=== PATIENT | female | born 1990 | race Caucasian/White ===

== ENCOUNTER 2021-12-04 09:25 | Emergency (ER) | payer MEDICAID, SELFPAY ==
[2021-12-04 09:31] VITALS: BP 142/80; PULSE 77; RESP 16; TEMP 36.8; O2SAT 97; BMI 34.7
[2021-12-04 09:50] LABS: Strep A Nucleic Acid Negative (Negative)
--- NOTE | 2021-12-04 11:21 | ED_ITS ---
HPI - URI/Sore Throat General Chief Complaint: General Medical Stated Complaint: Sore throat/Swollen tonsils Time Seen by Provider: 12/04/21 11:15 Source: patient Mode of arrival: ambulatory Limitations: no limitations History of Present Illness HPI Narrative: 31-year-old female presenting to the ED with complaints of ear pain/sore throat for approximately 1 week worse on the left side reports that she has swelling to the right tonsil although her left tonsil hurts more. She denies any recent dental work although reports that she believes she needs her left wisdom tooth removed due to dental caries. Denies any fevers, chills, dizziness, headaches, neck pain/stiffness, trouble swallowing or breathing, drooling, changes in voice, cough, sputum production, nausea/vomiting/diarrhea constipation, abdominal pain, rashes or recent travel or sick contacts. Reports that she does not want to be tested for COVID with the flu because she does not have any other symptoms she believes it is an infection her throat. MD elicited complaint: sore throat Onset (ago): week(s) (1) Consistency: constant and progressively worsening Severity: mild Description of mucous: clear and watery Able to tolerate fluids by mouth: Yes Exacerbating factors: swallowing Relieving factors: nothing Associated symptoms: ear pain Treatments prior to arrival: none Related Data Previous Rx's Medication Instructions Recorded amoxicillin 875 mg-potassium 1 tab PO BID 10 Days #20 tab 12/04/21 clavulanate 125 mg tablet dexamethasone 6 mg tablet 12 mg PO ONCE 1 Days #2 tab 12/04/21 (Decadron) Allergies Allergy/AdvReac Type Severity Reaction Status Date / Time No Known Allergies Allergy Verified 12/04/21 09:34 Review of Systems Review of Systems: Constitutional : No Weight loss, No Fever, No Chills, No Night Sweats, No Fatigue, No Malaise ENT/Mouth : +sore throat and left sided ear pain, No Hearing loss, No Nasal Congestion, No Sinus Pain, No Hoarseness, No Rhinorrhea, No Swallowing Difficu lty Eyes: No Eye Pain, No Swelling, No Redness, No Foreign Body, No Discharge, No Vision Changes Cardiovascular : No Chest Pain, No SOB, No Dyspnea on Exertion, No Orthopnea, No Edema, No Palpitations Respiratory : No Cough, No Sputum, No Wheezing, No Smoke Exposure, No Dyspnea Gastrointestinal : No Nausea, No Vomiting, No Diarrhea, No Constipation, No abdominal Pain, No Hematochezia, No Melena Genitourinary : no irregular bleeding, No Dysuria, No Urinary Frequency, No Hematuria, No Urinary Incontinence, No Urgency, No Flank Pain, No Urinary Flow Changes, No Hesitancy Musculoskeletal : No joint pain, No Myalgias, No Joint Swelling Skin : No Skin Lesions, No rash Neuro : No Weakness, No Numbness, No Paresthesias, No Loss of Consciousness, No Dizziness, No Headache Psych : No Anxiety/Panic, No Depression, No SI/HI/AH/VH, No Social Issues, Heme/Lymph: No Bruising, No Bleeding,No Lymphadenopathy Endocrine : No Polyuria, No Polydipsia, No Temperature Intolerance Yes all other systems are reviewed and are negative [facility] Past Medical History Attestation statement: The following information was validated with the patient. Physical Exam Vital Signs: Vital Signs: Last Vital Signs Temp 98.3 F 12/04/21 09:31 Pulse 77 12/04/21 09:31 Resp 16 12/04/21 09:31 BP 142/80 H 12/04/21 09:31 Pulse Ox 97 12/04/21 09:31 BMI result Body Mass Index 34.7 vital signs have been reviewed as normal and appeared to be correct. Blood pressure normal. Heart rate normal. Respiration rate normal. Temperature normal. Oxygen saturation normal. Appearance: Alert. Oriented X3. No acute distress. Head: Normal external exam. Normocephalic. Atraumatic. Eyes: PERRLA. EOMI. Conjunctiva and sclera normal. Eyelids normal. ENT: EAC normal. TM's Normal. Soft and hard palate are within normal limits. Bilateral tonsils are erythematous with scattered exudate noted the right tonsil is mildly larger than the left tonsil although uvula is midline not consistent with peritonsillar/laryngeal/dental or gingival abscess at this time. Patient is tolerating secretions well. Moist mucous membranes. No lesions/ulcerations or masses noted on the tongue. Normal voice. No trismus noted. No drooling noted. No muffled voice noted. Neck: Normal inspection. Neck supple. FROM. No adenopathy. Thyroid Normal. No tracheal deviation noted. No crepitus is noted. No meningeal signs. No neck mass noted. No signs of trauma noted. CVS: Normal heart rate and rhythm. Heart sound normal. Pulses normal throughout. No murmurs/rales/gallops. Respiratory: No respiratory distress. Painless inspiration. Breath sounds normal. No wheezes/rales/rhonchi noted. Chest nontender. No crepitus is noted. No signs of trauma noted. No accessory muscle usage noted or decreased air movement noted. No signs of trauma. Back: Full range of motion noted. Skin: Skin warm and dry. Normal skin color. Normal skin turgor. No rashes/lesions/lacerations noted. Extremities: Extremities exhibit normal range of motion and nontender. Neuro: Oriented X 3. No motor deficit. No sensory deficit. Reflexes normal. Normal steady gait. No focal neuro deficits noted. CN's II-XII intact bilaterally? Vascular: + radial pulses/+ 2 distal pedal pulses/+2 dorsalis pedis b/l. Normal cap refill. No cyanosis noted to upper extremity nails and lower extremity toes nails. Course Course Course Narrative: 31-year-old female presenting to the ED with complaints of ear pain/sore throat for approximately 1 week worse on the left side reports that she has swelling to the right tonsil although her left tonsil hurts more. She denies any recent dental work although reports that she believes she needs her left wisdom tooth removed due to dental caries. Denies any fevers, chills, dizziness, headaches, neck pain/stiffness, trouble swallowing or breathing, drooling, changes in voice, cough, sputum production, nausea/vomiting/diarrhea constipation, abdominal pain, rashes or recent travel or sick contacts. Reports that she does not want to be tested for COVID with the flu because she does not have any other symptoms she believes it is an infection her throat. Patient negative for strep. She declined testing for COVID and flu despite me offering. Will treat for strep despite patient being negative on exam it does not appear that she has peritonsillar/pharyngeal/dental or gingival abscess at this time. Uvula is midline. She is tolerating secretions well. Normal voice. No trismus/drooling/stridor. No muffled voice noted. I explained to the patient if her voice changes or for uvula shift and she would need to return immediately but at this time this is not occurring and she understands and agrees with the plan and to follow-up with her primary care provider. Patient understands agrees with this plan MDM - URI/Sore Throat Medical Records Attestation: I reviewed the patient's medical records. Lab Data Attestation: I reviewed the patient's lab results. Labs: Lab Results 12/04/21 Range/Units 09:34 S. pyogenes GrpA MELANY Negative (Negative) Discharge Plan Discharge Clinical Impression: Acute bacterial pharyngitis Patient Disposition: Home, Self-Care Instructions: Pharyngitis (ED) Prescriptions: New amoxicillin-pot clavulanate 875-125 mg tablet 1 tab PO BID 10 Days Qty: 20 0RF dexamethasone [Decadron] 6 mg tablet 12 mg PO ONCE 1 Days Qty: 2 0RF Referrals: Physician,Unknown J [Primary Care Provider] - 2 days (Your PCP) Stand Alone Forms: Work/School Release
== END 2021-12-04 11:45 | disposition home or self-care (01) ==
LOC: HO.ED 11:32
PROVIDERS: Emergency Provider Emergency Medicine Emergency Medical Services
DX: J02.8 Acute pharyngitis due to other specified organisms (principal)
CPT/HCPCS: 36415; 87651; 99282; 99283

== ENCOUNTER 2022-04-19 22:12 | Emergency (ER) | payer MEDICAID, SELFPAY ==
--- NOTE | ~2022-04-19 | CT_ITS ---
EXAMINATION: CT head/brain wo IV con CLINICAL INFORMATION: Reason for Exam headache COMPARISON: None. TECHNIQUE: Contiguous axial imaging was performed from the skull base to vertex without intravenous contrast. Sagittal and coronal reformatted images were obtained. This CT examination was performed using dose optimization techniques as appropriate, variously including the following: * Automated exposure control * Adjustment of mA and/or kV according to patient size (this includes techniques or standardized protocols for targeted exams where dose is matched to indication/reason for exam; i.e. extremities or head) Use of iterative reconstruction technique DLP: 673 mGy-cm FINDINGS: No acute osseous or soft tissue abnormality. The mastoid air cells and visualized portions of the paranasal sinuses are well aerated. There is no evidence of acute intracranial hemorrhage or territorial infarction. No abnormal mass effect or midline shift is seen. Parkinson to white matter differentiation is well preserved. No extra-axial fluid collections are identified. No hydrocephalus. No significant volume loss. There is no abnormal attenuation within the brain parenchyma. CT/CT head/brain wo IV con IMPRESSION: No acute intracranial abnormality including hemorrhage, mass effect, hydrocephalus, or acute territorial edematous infarction.
[2022-04-19 22:41] VITALS: BP 136/86; PULSE 84; RESP 18; TEMP 36.9; O2SAT 98; BMI 33.8
[2022-04-19] MEDS: Acetaminophen 325 MG TABLET 650 MG PO (22:51)
[2022-04-19 23:17] LABS: MANUAL DIFF FLAG NO
[2022-04-19 23:20] LABS: Basophils Absolute Auto 0.1 X10*3/uL (0.0-0.2); Basophils Percent Auto 0.7 % (0-2); Eosinophils Absolute Auto 0.2 X10*3/uL (0.0-0.4); Eosinophils Percent Auto 2.1 % (0-4); Hemoglobin 14.1 g/dl (12.0-16.0); Imm Gran Abs Auto 0.03 X10*3/uL (0.00-0.03); Imm Gran Pct Auto 0.3 % (0.0-0.4); Lymphocytes Percent Auto 31.7 % (20-40); Mean Corpuscular HGB Conc 34.4 g/dl (31.0-35.0); Mean Corpuscular Hemoglobin 29.9 pg (27.0-33.0); Mean Corpuscular Volume 86.9 fL (80.0-98.0); Mean Platelet Volume 10.4 fL (9.4-12.3); Monocytes Percent Auto 10.1 % (2-11); Neutrophils Absolute Auto 5.2 x10*3/uL (2.0-8.3); Neutrophils Percent Auto 55.1 % (45-73); Platelet Count 291 X10*3/uL (160-400); Red Blood Count 4.72 X10*6/uL (4.20-5.50); Red Cell Distribution Width 12.4 % (11.0-16.0); White Blood Count 9.4 X10*3/uL (4.8-10.8)
[2022-04-19 23:38] LABS: Anion Gap 15 (12-20); Blood Urea Nitrogen 11 mg/dL (9-16); Calcium 9.8 mg/dL (8.4-10.2); Carbon Dioxide 25 mmol/L (22-29); Chloride 106 mmol/L (96-108); Creatinine Clr Calc Pharmacy 123.3; Estimated Glomerular Filt Rate > 60; Glucose Random 97 mg/dL (60-115); Potassium 4.3 mmol/L (3.3-5.1); Sodium 142 mmol/L (135-145)
--- OUTSIDE RECORDS SUMMARY | 2022-04-20 01:50 | XMS_ITS | Continuity of Care Document ---
:1990 Author Organization [facility] Address [address] [place] [id number]- Care Team Providers Name Role Phone Not on Staff, PCP Primary Care Physician Unavailable [facility]): 09[facility]20 - 09/25/[address] [address] Attending Physician: Not on Staff, Attending MD Referring Physician: Yvonne Casanova CNM Allergies, Adverse Reactions, Alerts Substance Reaction Severity Status NKA Active Immunizations Given and Recorded Vaccine Date Status Refusal Reason tetanus/diphtheria/pertussis, acel(Tdap)1 09/04/20 Given Measles/Mumps/Rubella Virus Vaccine 12/13/18 Given Measles/Mumps/Rubella Virus Vaccine2 05/14/98 Given Measles/Mumps/Rubella Virus Vaccine3 10/31/93 Given Boostrix (Tdap) (oldterm) 08/17/13 Given Human Papillomavirus Vaccine4 02/22/08 Given Human Papillomavirus Vaccine 02/15/07 Given Meningococcal Conjugate Vaccine 02/15/07 Given Tet/Diphth/Acel, Pertussis (oldterm)5 02/15/07 Given tetanus-diphtheria toxoids (Td)6 05/05/05 Given Hepatitis B Vaccine (old term)7 10/24/02 Given Hepatitis B Vaccine (old term)8 04/30/02 Given Hepatitis B Vaccine (old term)9 03/26/02 Given Poliovirus Vaccine, Inactivated 03/18/98 Given Poliovirus Vaccine, Inactivated 09/24/94 Given Poliovirus Vaccine, Inactivated 08/21/93 Given Poliovirus Vaccine, Inactivated 92 Given Diphth/Pertussis, Whl Cell/Tet(oldterm)10 03/18/98 Given Diphth/Pertussis, Whl Cell/Tet(oldterm)11 09/24/94 Given Diphth/Pertussis, Whl Cell/Tet(oldterm)12 08/21/93 Given Diphth/Pertussis, Whl Cell/Tet(oldterm)13 92 Given Diphth/Pertussis, Whl Cell/Tet(oldterm)14 92 Given Haemophilus B Conj Vaccine (oldterm)15 92 Given 1Result Comment: [facility] [phone] Note: OVZ0Fzhhp Note: YEX9Pnkef Note: vis Admin Note: TDAP WEDPR2Qnycr Note: TD. hx varicella age 19Admin Note: HEP W8Vtcoz Note: HEP S5Ayivp Note: HEP P39Tfkvn Note: MPV19Wwnmb Note: DTP12 Admin Note: QRQ65Paref Note: COU39Rpsvs Note: QZC29Jptcm Note: HIB Medications Multivitamins By Mouth, Daily, 0 Refills, Maintenance, 11/22/18 14:54:56 EDT Start Date: 11/22/18 Status: Orderedpyridoxine 25 mg oral tablet 1 tablet = 25 mg, By Mouth, Daily, one by mouth three times a day, # 100 tablet, 1 Refills, Maintenance, 05/08/20 12:18:00 EDT, [id number], 155, cm, 05/08/20 11:38:00 EDT, Height, 101, kg, 12/11/18 12:30:00 EDT, Dry Weight Start Date: 05/08/20 Status: OrderedUnisom 25 mg oral tablet 1 tablet = 25 mg, By Mouth, Daily at bedtime, # 30 tablet, 1 Refills, Maintenance, 05/08/20 12:18:00EDT, [id number], 155, cm, 05/08/20 11:38:00 EDT, Height, 101, kg, 12/11/18 12:30:00 EDT, DryWeight Start Date: 05/08/20 Status: Ordered Problem List Condition Effective Dates Status Health Status Informant ADHD - Attention deficit disorder with Active hyperactivity(Confirmed) Anemia(Confirmed) Active Anxiety(Confirmed) Active Dermoid cyst of ovary(Confirmed) Active History of blood Transfusion r/t Active severe anemia PP(Confirmed) Obesity(Confirmed) Active Need for MMR vaccine(Confirmed) Active Vital Signs Most recent to oldest [Reference Range]: 1 Height 155 cm (09/18/20 9:53 AM) Weight 90.6 kg (09/18/20 9:53 AM) Body Mass Index [18.5-24.99] 37.71 *>HHI* (09/18/20 9:53 AM) Blood Pressure [90-138/55-84 mm Hg] 104/65 mm Hg (09/18/20 9:53 AM) Temperature [96.8-100.4 DegF] 96.5 DegF *L* (09/18/20 9:53 AM) Blood pressure sites Arm, right (09/18/20 9:53 AM) Dry Weight 90.6 kg (09/18/20 9:53 AM) Weight Obtained Via Standing scale (09/18/20 9:53 AM) Dry Weight Obtained Via Standing scale (09/18/20 9:53 AM) Social History Social History Type Response Smoking Status Former smoker, quit more yaya n 30 days ago; Type: Cigarettes; Other: Smoked on/off for about five years. About 1-2 cigarettes. Quit around 2016; entered on: 11/22/18 Sex
--- OUTSIDE RECORDS SUMMARY | 2022-04-20 01:50 | XMS_ITS | Continuity of Care Document ---
:1990 Author Organization [facility] Address [address] [place] [id number]- Care Team Providers Name Role Phone Not on Staff, PCP Primary Care Physician Unavailable [facility]): 10/16/20 - 11/15/[address] [address] Allergies, Adverse Reactions, Alerts Substance Reaction Severity [...] Conj Vaccine (oldterm)15 92 Given 1Result Comment: [facility] [phone] Note: MMS5Zkwdd Note: JHZ8Nbezs Note: vis Admin Note: TDAP BTGBS2Csfde Note: TD. hx varicella age 19Admin Note: HEP B5Gvecy Note: HEP U2Szuuo Note: HEP F54Qcczx Note: FOD51Dbwyx Note: DTP12 Admin Note: TWS12Ylplp Note: SGX10Ftlnd Note: DET15Ztowg Note: HIB Medications ferrous sulfate 325 mg oral tablet 1 tablet = 325 mg, By Mouth, Daily, # 30 tablet, 4 Refills, Maintenance, 10/02/20 10:34:00 EDT, [facility]/pharmacy #[id number], Partial fill upon patient request if the prescription is for a schedule II opioid drug., 155, cm, 09/18/20 9:53:00 EST, Height, 90.6, k... Start Date: 10/02/20 Stop Date: 03/01/21 Status: OrderedPrenatal Multivitamins By Mouth, Daily, 0 Refills, Maintenance, [...] Obesity(Confirmed) Active Need for MMR vaccine(Confirmed) Active Social History Social History Type Response Smoking Status Former smoker, quit more yaya n 30 days ago; Type: Cigarettes; Other: Smoked on/off for about five years. About 1-2 cigarettes. Quit around 2016; entered on: 11/22/18 Sex
--- OUTSIDE RECORDS SUMMARY | 2022-04-20 01:50 | XMS_ITS | Continuity of Care Document ---
:1990 Author Organization [facility] Address Unavailable , Care Team Providers Name Role Phone Not on Staff, PCP Primary Care Physician Unavailable [facility] Attending Physician: Not on Staff, Attending MD Referring Physician: Not on Staff, Referring MD Allergies, Adverse Reactions, Alerts Substance Reaction Severity [...] Conj Vaccine (oldterm)15 92 Given 1Result Comment: [facility] [phone] Note: SFC2Fouos Note: EPR0Tixtu Note: vis Admin Note: TDAP LRMXD6Lvlcb Note: TD. hx varicella age 19Admin Note: HEP N4Kfqsq Note: HEP O0Tuwdl Note: HEP S33Xkzlv Note: FIK60Nztmw Note: DTP12 Admin Note: COP40Dgkpt Note: XHX54Dwule Note: ZIC67Paoyu Note: HIB Medications acetaminophen 325 mg oral tablet 650 mg, By Mouth, Every 4 hours, PRN, (1-3), may give 325mg per patient preference and re-dose with 325mg within 4 hours, if needed. Patient should only receive a total of 650mg of Acetaminophen every 4 hours., Refills 0, Maintenance, Pain , Mild, 0... Start Date: 11/24/20 Status: Orderedacetaminophen 325 mg oral tablet 325 mg, 1, tablet, By Mouth, Every 4 hours, PRN, # 60 tablet, Refills 0, Tot. Refills 0, Maintenance, for pain, 11/24/20 9:42:00 EDT, Route to Pharmacy Electronically, [facility]/pharmacy #[id number], Partial fill upon patient request if the prescription is for a... Start Date: 11/24/20 Status: Orderedferrous sulfate 325 mg oral tablet 1 tablet = 325 mg, By Mouth, Daily, # 30 tablet, 4 Refills, Maintenance, 10/02/20 10:34:00 EDT, [facility]/pharmacy #[id number], Partial fill upon patient request if the prescription is for a schedule II opioid drug., 155, cm, 09/18/20 9:53:00 EST, Height, 90.6, k... Start Date: 10/02/20 Stop Date: 03/01/21 Status: Orderedibuprofen 600 mg oral tablet 600 mg, 1, tablet, By Mouth, 4 times a day, PRN, # 30 tablet, Refills 0, Tot. Refills 0, Maintenance, as needed for pain, 11/24/20 9:44:00 EDT, Route to Pharmacy Electronically, [facility]/pharmacy #[id number], Partial fill upon patient request if the prescription... Start Date: 11/24/20 Status: Orderedibuprofen 800 mg oral tablet 800 mg, 1, tablet, By Mouth, Every 8 hours, PRN, (4-6), may give 400mg per patient preference and re-dose with 400mg within 8 hours if needed. Patient should only receive a total of 800mg of Ibuprofen every 8 hours., Refills 0, Maintenance, Pain , M... Start Date: 11/24/20 Status: OrderedMirena 52 mg intrauterine device See Instructions, Insert as directed DOI 03-05-21 Please Mail to [facility] Dinorah Ballard [employer] ATTN [address] [address], # 1 each, 0 Refills, Soft Stop, 01/08/21 10:13:00 EDT, [facility], Partial fill upon... Start Date: 01/08/21 Status: OrderedPrenatal Multivitamins By Mouth, Daily, 0 Refills, Maintenance, 11/22/18 14:54:56 EDT Start Date: 11/22/18 Status: Ordered Problem List Condition Effective Dates [...]
--- OUTSIDE RECORDS SUMMARY | 2022-04-20 01:50 | XMS_ITS | Continuity of Care Document ---
:1990 Author Organization [facility] Address [address] [place] [id number]- Care Team Providers Name Role Phone Not on Staff, PCP Primary Care Physician Unavailable [facility]s): 10/16/20 - 10/23/[address] [address] Attending Physician: Not on Staff, Attending MD Referring Physician: Constantin TERRY ENGINEERING PROGRAMMER, Brent Sanchez Allergies, Adverse Reactions, Alerts Substance Reaction Severity [...] Conj Vaccine (oldterm)15 92 Given 1Result Comment: [facility] [phone] Note: ZEB5Phkbw Note: XZO1Pdvkw Note: vis Admin Note: TDAP IYVQE2Mggsu Note: TD. hx varicella age 19Admin Note: HEP F1Ttkry Note: HEP U2Mmoak Note: HEP L21Qtgio Note: EHT49Lokuu Note: DTP12 Admin Note: UFF66Pglhq Note: VPU27Lbdlh Note: BLL91Ixcwk Note: HIB Medications ferrous sulfate 325 mg oral tablet 1 tablet = 325 mg, By Mouth, Daily, # 30 tablet, 4 Refills, Maintenance, 10/02/20 10:34:00 EDT, [facility]/pharmacy #[id number], Partial fill upon patient request [...] oldest [Reference Range]: 1 Height 155 cm (10/16/20 10:20 AM) Weight 91.9 kg (10/16/20 10:20 AM) Body Mass Index [18.5-24.99] 38.25 *>HHI* (10/16/20 10:20 AM) Blood Pressure [90-138/55-84 mm Hg] 114/67 mm Hg (10/16/20 10:20 AM) Temperature [96.8-100.4 DegF] 96.4 DegF *L* (10/16/20 10:20 AM) Blood pressure sites Arm, right (10/16/20 10:20 AM) Temperature Route Temporal (10/16/20 10:20 AM) Dry Weight 91.9 kg (10/16/20 10:20 AM) Weight Obtained Via Standing scale (10/16/20 10:20 AM) Dry Weight Obtained Via Standing scale (10/16/20 10:20 AM) Social History Social History Type Response Smoking Status Former smoker, quit more yaya n 30 days ago; Type: Cigarettes; Other: Smoked on/off for about five years. About 1-2 cigarettes. Quit around 2016; entered on: 11/22/18 Sex
--- OUTSIDE RECORDS SUMMARY | 2022-04-20 01:50 | XMS_ITS | Continuity of Care Document ---
:1990 Author Organization [facility] Address [address] [place] [address]- Care Team Providers Name Role Phone Not on Staff, PCP Primary Care Physician Unavailable [facility]): 06/[facility]/20 - 07/23/20 [facility] [address] [place], [place] [address] Allergies, Adverse Reactions, Alerts Substance Reaction Severity Status NKA Active Immunizations Given and Recorded Vaccine Date Status Refusal Reason Measles/Mumps/Rubella Virus Vaccine 12/13/18 Given Measles/Mumps/Rubella Virus Vaccine1 05/14/98 Given Measles/Mumps/Rubella Virus Vaccine2 10/31/93 Given Boostrix (Tdap) (oldterm) 08/17/13 Given Human Papillomavirus Vaccine3 02/22/08 Given Human Papillomavirus Vaccine 02/15/07 Given Meningococcal Conjugate Vaccine 02/15/07 Given Tet/Diphth/Acel, Pertussis (oldterm)4 02/15/07 Given tetanus-diphtheria toxoids (Td)5 05/05/05 Given Hepatitis B Vaccine (old term)6 10/24/02 Given Hepatitis B Vaccine (old term)7 04/30/02 Given Hepatitis B Vaccine (old term)8 03/26/02 Given Poliovirus Vaccine, Inactivated 03/18/98 Given Poliovirus Vaccine, Inactivated 09/24/94 Given Poliovirus Vaccine, Inactivated 08/21/93 Given Poliovirus Vaccine, Inactivated 92 Given Diphth/Pertussis, Whl Cell/Tet(oldterm)9 03/18/98 Given Diphth/Pertussis, Whl Cell/Tet(oldterm)10 09/24/94 Given Diphth/Pertussis, Whl Cell/Tet(oldterm)11 08/21/93 Given Diphth/Pertussis, Whl Cell/Tet(oldterm)12 92 Given Diphth/Pertussis, Whl Cell/Tet(oldterm)13 92 Given Haemophilus B Conj Vaccine (oldterm)14 92 Given 1Admin Note: DPS7Xzgfx Note: VUO7Kydgm Note: vis 074Admin Note: TDAP GIVEN5 Admin Note: TD. hx varicella age 18Admin Note: HEP F4Svrss Note: HEP J1Jdskc Note: HEP N3Opdxb Note: NXW46Npuvm Note: EDH77Zvzsy Note: DBD09Afize Note: DTP13 Admin Note: SSS23Iokmi Note: HIB Medications Multivitamins By Mouth, Daily, [...] blood Transfusion r/t Active severe anemia PP(Confirmed) Gestational hypertension(Confirmed) Active Obesity(Confirmed) Active Need for MMR vaccine(Confirmed) Active Social History Social History Type Response Smoking Status Former smoker, quit more yaya n 30 days ago; Type: Cigarettes; Other: Smoked on/off for about five years. About 1-2 cigarettes. Quit around 2016; entered on: 11/22/18 Sex
--- OUTSIDE RECORDS SUMMARY | 2022-04-20 01:50 | XMS_ITS | Continuity of Care Document ---
:1990 Author Organization [facility] Address [address] [address]- Care Team Providers Name Role Phone Not on Staff, PCP Primary Care Physician Unavailable [facility]counter [facility] Date[facility]s): 11/20/20 - 11/27/[address] [address] Attending Physician: Not on Staff, Attending MD [...] Whl Cell/Tet(oldterm)10 03/18/98 Given Diphth/Pertussis, Whl Cell/Tet(oldterm)11 3/10/95 Given Diphth/Pertussis, Whl Cell/Tet(oldterm)12 08/21/93 Given Diphth/Pertussis, Whl Cell/Tet(oldterm)13 92 Given Diphth/Pertussis, Whl Cell/Tet(oldterm)14 92 Given Haemophilus B Conj Vaccine (oldterm)15 92 Given 1Result Comment: [facility] [phone] Note: EQF0Xjkae Note: UDA5Gtexo Note: vis Admin Note: TDAP XSCNN0Qprea Note: TD. hx varicella age 19Admin Note: HEP M5Odckn Note: HEP U3Lhdvz Note: HEP K57Yfnjy Note: AEU78Woott Note: DTP12 Admin Note: FAN47Mgcnc Note: ZZN47Ivsxo Note: ACK61Kohzn Note: HIB Medications acetaminophen 325 mg oral [...] 11/24/20 9:42:00 EDT, Route to Pharmacy Electronically, [facility]/pharmacy #[id number], Partial fill upon patient request if the prescription is for a... Start Date: 11/24/20 Status: Orderedferrous sulfate 325 mg oral tablet 1 tablet = 325 mg, By Mouth, Daily, # 30 tablet, 4 Refills, Maintenance, 10/02/20 10:34:00 EDT, [facility]/pharmacy #[id number], Partial fill upon patient request [...] 11/24/20 9:44:00 EDT, Route to Pharmacy Electronically, [facility]/pharmacy #[id number], Partial fill upon patient request if the [...] Pain , M... Start Date: 11/24/20 Status: OrderedPrenatal Multivitamins By Mouth, Daily, 0 [...] oldest [Reference Range]: 1 Height 155 cm (11/20/20 10:54 AM) Weight 96.1 kg (11/20/20 10:54 AM) Body Mass Index [18.5-24.99] 40 *>HHI* (11/20/20 10:54 AM) Blood Pressure [90-138/55-84 mm Hg] 106/62 mm Hg (11/20/20 10:54 AM) Blood pressure sites Arm, right (11/20/20 10:54 AM) Weight Obtained Via Standing scale (11/20/20 10:54 AM) Social History Social History Type Response Smoking Status Former smoker, quit more yaya n 30 days ago; Type: Cigarettes; Other: Smoked on/off for about five years. About 1-2 cigarettes. Quit around 2016; entered on: 11/22/18 Sex
--- OUTSIDE RECORDS SUMMARY | 2022-04-20 01:50 | XMS_ITS | Continuity of Care Document ---
:1990 Author Organization [facility] Address Unavailable , Care Team Providers Name Role Phone Not on Staff, PCP Primary Care Physician Un[facility]): [facility] Attending Physician: Not on Staff, Attending MD Referring Physician: Louise Hobbs CNM Allergies, Adverse Reactions, Alerts Substance Reaction [...] 1Result Comment: [facility] [phone] Note: ZFG1Iyxcc Note: PKI2Bsxqi Note: vis Admin Note: TDAP SVZDB0Easdv Note: TD. hx varicella age 19Admin Note: HEP N8Fjdki Note: HEP N4Smpxg Note: HEP B90Yemvg Note: QCV19Sunnz Note: DTP12 Admin Note: YCZ36Kxiol Note: AAA66Pzjtc Note: XAA97Uupxu Note: HIB Medications acetaminophen 325 mg oral [...] 11/24/20 9:42:00 EDT, Route to Pharmacy Electronically, [facility]/pharmacy #[id number], Partial fill upon patient request if the prescription is for a... Start Date: 11/24/20 Status: Orderedferrous sulfate 325 mg oral tablet 1 tablet = 325 mg, By Mouth, Daily, # 30 tablet, 4 Refills, Maintenance, 10/02/20 10:34:00 EDT, [facility]/pharmacy #[id number], Partial fill upon patient request [...] 11/24/20 9:44:00 EDT, Route to Pharmacy Electronically, [facility]/pharmacy #[id number], Partial fill upon patient request [...] as directed DOI 03-05-21 Please Mail to [facility] Dinorah Ballard CAR LUBRICATOR ATTN [address] [address], # 1 each, 0 Refills, Soft Stop, 01/08/21 10:13:00 EDT, [facility], Partial fill upon... Start Date: [...]
--- OUTSIDE RECORDS SUMMARY | 2022-04-20 01:50 | XMS_ITS | Continuity of Care Document ---
:1990 Author Organization [facility] Address [address] [place] [address]- Care Team Providers Name Role Phone Not on Staff, PCP Primary Care Physician Unavailable [facility] 05/[facility]/20 - 05/15/[address] [address]- [facility] Attending Physician: Stephanie Arreola CNM Allergies, Adverse Reactions, Alerts Substance Reaction [...] Conj Vaccine (oldterm)14 92 Given 1Admin Note: HOF6Nvgda Note: UTD8Jknax Note: vis 08/19/064Admin Note: TDAP GIVEN5 Admin Note: TD. hx varicella age 18Admin Note: HEP Q9Wdvqk Note: HEP D8Hsqwo Note: HEP U7Loqdm Note: LWW95Lwmun Note: EAJ47Frhce Note: OOG93Ztmpy Note: DTP13 Admin Note: FBT58Aepdj Note: HIB Medications Multivitamins By Mouth, Daily, [...] oldest [Reference Range]: 1 Height 155 cm (05/08/20 11:38 AM) Weight 79.2 kg (05/08/20 11:38 AM) Body Mass Index [18.5-24.99] 32.97 *>HHI* (05/08/20 11:38 AM) Blood Pressure [90-138/55-84 mm Hg] 116/60 mm Hg (05/08/20 11:38 AM) Temperature [96.8-100.4 DegF] 97.5 DegF (05/08/20 11:38 AM) Blood pressure sites Arm, right (05/08/20 11:38 AM) Weight Obtained Via Standing scale (05/08/20 11:38 AM) Social History Social History Type Response Smoking Status Former smoker, quit more yaya n 30 days ago; Type: Cigarettes; Other: Smoked on/off for about five years. About 1-2 cigarettes. Quit around 2016; entered on: 11/22/18 Sex
--- OUTSIDE RECORDS SUMMARY | 2022-04-20 01:50 | XMS_ITS | Continuity of Care Document ---
:1990 Author Organization [facility] Address Unavailable , Care Team Providers Name Role Phone Not on Staff, PCP Primary Care Physician Unavailable [facility] 08/20/21 - 09/19/21 [facility] Attending Physician: Hilton Silva Admitting Physician: Hilton Silva Referring Physician: Hilton Silva Allergies, Adverse Reactions, Alerts No Known Allergies Immunizations Given and Recorded Vaccine Date Status [...] (oldterm)15 92 Given 1Result Comment: [facility] [phone] Note: LSE0Xirsg Note: DCA0Hnxlf Note: vis Admin Note: TDAP WRISG8Bubzl Note: TD. hx varicella age 19Admin Note: HEP P1Xsezm Note: HEP V9Shypr Note: HEP B52Zfhng Note: GAW57Emefr Note: DTP12 Admin Note: NWT17Cnauj Note: TPU12Tyakk Note: UUL71Kvhpc Note: HIB Medications Depo-Provera Contraceptive 150 mg/mL intramuscular suspension 1 mL = 150 mg, Intramuscular, Every 3 months, # 1 mL, 3 Refills, Maintenance, 08/20/21 10:46:00 EST,Suspension, [facility]/pharmacy #[id number], Partial fill upon patient request if the prescription is for a schedule II opioid drug., 155, cm, 08/20/21 10:04:00 ES... Start Date: 08/20/21 Status: OrderedPlan B One-Step 1.5 mg oral tablet 1.5 mg, 1, tablet, By Mouth, Once, use within 72 hours, # 1 tablet, Refills 1, Tot. Refills 1, Soft Stop, 08/17/21 17:32:00 EST, Route to Pharmacy Electronically, [facility]/pharmacy #[id number], Partial fill upon patient request if the prescription is for a sched... Start Date: 08/17/21 Status: Ordered Problem List Condition Effective Dates [...]
--- OUTSIDE RECORDS SUMMARY | 2022-04-20 01:50 | XMS_ITS | Continuity of Care Document ---
:1990 Author Organization [facility] Address [address] [place] [address]- Care Team Providers Name Role Phone Not on Staff, PCP Primary Care Physician Unavailable [facility]s): 07/31/20 - 09/13/[address] [address]- Attending Physician: Not on Staff, Attending MD [...] Conj Vaccine (oldterm)15 92 Given 1Result Comment: [facility] [phone] Note: UTB1Didej Note: HSE7Ozkhi Note: vis Admin Note: TDAP QDAVS1Ofggx Note: TD. hx varicella age 19Admin Note: HEP Q1Pssch Note: HEP Y9Nksnf Note: HEP E27Jugit Note: AXV55Xksfl Note: DTP12 Admin Note: RTJ79Ujatr Note: ACT21Cyski Note: TSA77Gawzi Note: HIB Medications Multivitamins By Mouth, Daily, [...]
--- OUTSIDE RECORDS SUMMARY | 2022-04-20 01:50 | XMS_ITS | Continuity of Care Document ---
:1990 Author Organization [facility] Address [address] [place] [address]- Care Team Providers Name Role Phone Not on Staff, PCP Primary Care Physician Unavailable [facility] Date(s): 09/01/20 - 10/01/20 [facility] [address] [place] [address]- Allergies, Adverse Reactions, Alerts Substance Reaction Severity [...] Conj Vaccine (oldterm)15 92 Given 1Result Comment: [facility] [phone] Note: FJZ7Xoyzs Note: HMG6Osohk Note: vis Admin Note: TDAP BCOXO2Fonmw Note: TD. hx varicella age 19Admin Note: HEP K9Ekcgt Note: HEP D7Ppofz Note: HEP D77Quuzb Note: VXQ13Uguqp Note: DTP12 Admin Note: RLS54Qdrwb Note: QYO50Vbpsd Note: TXT04Gvgit Note: HIB Medications Multivitamins By Mouth, Daily, [...]
--- OUTSIDE RECORDS SUMMARY | 2022-04-20 01:50 | XMS_ITS | Continuity of Care Document ---
:1990 Author Organization [facility] Address [address] [place] [address]- Care Team Providers Name Role Phone Not on Staff, PCP Primary Care Physician Unavailable [facility]counter [facility] Date(s): 11/20/20 - 12/21/[address] [address] Attending Physician: Andrea Mendieta MD Referring Physician: Constantin TERRY SEPARATING MACHINE OPERATOR, Brent Sanchez Allergies, Adverse Reactions, Alerts Substance [...] 92 Given 1Result Comment: [facility] [phone] Note: ANS1Jndhp Note: XJW9Rufsl Note: vis Admin Note: TDAP HVEPQ1Hgxrj Note: TD. hx varicella age 19Admin Note: HEP Q0Okgyq Note: HEP O6Imibt Note: HEP N19Cwbxj Note: IVK19Qxfpu Note: DTP12 Admin Note: ISK24Wfyax Note: YKO57Vadea Note: DZW55Qwkaj Note: HIB Medications acetaminophen 325 mg oral [...] 11/24/20 9:42:00 EDT, Route to Pharmacy Electronically, [facility]/pharmacy #[id number], Partial fill upon patient request if the prescription is for a... Start Date: 11/24/20 Status: Orderedferrous sulfate 325 mg oral tablet 1 tablet = 325 mg, By Mouth, Daily, # 30 tablet, 4 Refills, Maintenance, 10/02/20 10:34:00 EDT, [facility]/pharmacy #1230, Partial fill upon patient request if [...] 11/24/20 9:44:00 EDT, Route to Pharmacy Electronically, [facility]/pharmacy #[id number], Partial fill upon patient request if the [...]
--- OUTSIDE RECORDS SUMMARY | 2022-04-20 01:50 | XMS_ITS | Continuity of Care Document ---
:1990 Author Organization [facility] Address [address] [place] [address]- Care Team Providers Name Role Phone Not on Staff, PCP Primary Care Physician Unavailable [facility]s): 04/15/20 - 05/15/20 [facility] [address] [place] [address]- [facility] Allergies, Adverse Reactions, Alerts Substance Reaction Severity [...] Conj Vaccine (oldterm)14 92 Given 1Admin Note: GQA7Ehreo Note: JVU4Eepvt Note: vis 074Admin Note: TDAP GIVEN5 Admin Note: TD. hx varicella age 18Admin Note: HEP L8Biczv Note: HEP K8Lcnqv Note: HEP W2Eqfzo Note: REQ72Lolun Note: LID42Qgwtj Note: UCP97Ajium Note: DTP13 Admin Note: SJE19Djulp Note: HIB Medications Multivitamins By Mouth, Daily, [...]
--- OUTSIDE RECORDS SUMMARY | 2022-04-20 01:50 | XMS_ITS | Continuity of Care Document ---
:1990 Author Organization [facility] Address [address] [place] [address]- Care Team Providers Name Role Phone Not on Staff, PCP Primary Care Physician Unavailable [facility] Date(s): 06/19/20 - 06/26/[address] [address]- Attending Physician: Not on Staff, Attending MD Referring Physician: Constantin TERRY FANS CLERK, Brent Sanchez Allergies, Adverse Reactions, Alerts Substance [...] Conj Vaccine (oldterm)14 92 Given 1Admin Note: IJU8Ofuuk Note: DTN1Uijim Note: vis 08/19/064Admin Note: TDAP GIVEN5 Admin Note: TD. hx varicella age 18Admin Note: HEP V7Wtnii Note: HEP E9Vtkyi Note: HEP L5Flcmz Note: SQO92Nradg Note: VIA21Xxtqu Note: SHZ99Wdfyx Note: DTP13 Admin Note: GRZ40Bdmzs Note: HIB Medications Multivitamins By Mouth, Daily, [...]
--- OUTSIDE RECORDS SUMMARY | 2022-04-20 01:50 | XMS_ITS | Continuity of Care Document ---
:1990 Author Organization [facility] Address [address] [address]- Care Team Providers Name Role Phone Not on Staff, PCP Primary Care Physician Unavailable [facility]s): 11/05/20 - 12/05/20 [facility] [address] [place] [address] Attending Physician: Hilton Silva Admitting Physician: Hilton Silva Referring Physician: Hilton Silva Allergies, Adverse Reactions, Alerts Substance Reaction Severity [...] Conj Vaccine (oldterm)15 92 Given 1Result Comment: [facility] [phone] Note: JUH4Etabq Note: WFD1Edfds Note: vis Admin Note: TDAP ZLOCT2Bdlij Note: TD. hx varicella age 19Admin Note: HEP L7Vexmh Note: HEP J6Kdwer Note: HEP U45Beoip Note: TFD30Mzlvo Note: DTP12 Admin Note: SKO24Pfkwb Note: NVV78Spvth Note: EEI25Zwsev Note: HIB Medications acetaminophen 325 mg oral [...] 11/24/20 9:42:00 EDT, Route to Pharmacy Electronically, [facility]/pharmacy #[id number], Partial fill upon patient request if the prescription is for a... Start Date: 11/24/20 Status: Orderedferrous sulfate 325 mg oral tablet 1 tablet = 325 mg, By Mouth, Daily, # 30 tablet, 4 Refills, Maintenance, 10/02/20 10:34:00 EDT, [facility]/pharmacy #1230, Partial fill upon [...] 11/24/20 9:44:00 EDT, Route to Pharmacy Electronically, [facility]/pharmacy #[id number], Partial fill upon patient request if the [...]
--- OUTSIDE RECORDS SUMMARY | 2022-04-20 01:50 | XMS_ITS | Continuity of Care Document ---
:1990 Author Organization [facility] Address [address] [place] [address]- Care Team Providers Name Role Phone Not on Staff, PCP Primary Care Physician Unavailable [facility] Date(s): 07/04/20 - 07/11/20 [facility] [address] [place] [address] Attending Physician: Not on Staff, Attending MD Allergies, Adverse Reactions, Alerts Substance Reaction [...] Conj Vaccine (oldterm)14 92 Given 1Admin Note: DEY4Xxozp Note: YCO9Aajoe Note: vis 08/19/064Admin Note: TDAP GIVEN5 Admin Note: TD. hx varicella age 18Admin Note: HEP X9Huzml Note: HEP P8Zpnti Note: HEP Y0Yjedr Note: SHO29Reqpg Note: ZWZ06Plyij Note: HER43Tmyga Note: DTP13 Admin Note: IQZ06Hmyyd Note: HIB Medications Multivitamins By Mouth, Daily, [...]
--- OUTSIDE RECORDS SUMMARY | 2022-04-20 01:50 | XMS_ITS | Continuity of Care Document ---
:1990 Author Organization [facility] Address [address] [place] [address]- Care Team Providers Name Role Phone Not on Staff, PCP Primary Care Physician Unavailable [facility] Date[facility]s): 12/02/20 - 01/17/[address] [address] Attending Physician: Stephanie Arreola CNM Referring Physician: Constantin TERRY JOB PLACEMENT OFFICER, Brent Sanchez Allergies, Adverse Reactions, Alerts Substance [...] Given 1Result Comment: [facility] [phone] Note: FAX3Ygqwo Note: YKM6Lslmr Note: vis Admin Note: TDAP FLQCB2Pxnxy Note: TD. hx varicella age 19Admin Note: HEP R6Swsoo Note: HEP M1Ixnve Note: HEP I24Muzrg Note: LSE97Hihdb Note: DTP12 Admin Note: JKW47Diays Note: TBP60Yovzg Note: PJG26Whgou Note: HIB Medications acetaminophen 325 mg oral [...] 11/24/20 9:42:00 EDT, Route to Pharmacy Electronically, [facility]/pharmacy #[id number], Partial fill upon patient request if the prescription is for a... Start Date: 11/24/20 Status: Orderedferrous sulfate 325 mg oral tablet 1 tablet = 325 mg, By Mouth, Daily, # 30 tablet, 4 Refills, Maintenance, 10/02/20 10:34:00 EDT, [facility]/pharmacy #1230, Partial fill upon patient request if [...] 11/24/20 9:44:00 EDT, Route to Pharmacy Electronically, [facility]/pharmacy #[id number], Partial fill upon patient request if the [...] as directed DOI 03-05-21 Please Mail to [facility] Dinorah Ballard DAY CARE SUPERVISOR ATTN [address] [place] [address], # 1 each, 0 Refills, Soft Stop, 01/08/21 10:13:00 EDT, [facility], Partial fill upon... [...]
--- OUTSIDE RECORDS SUMMARY | 2022-04-20 01:50 | XMS_ITS | Continuity of Care Document ---
:1990 Author Organization [facility] Address Unavailable , Care Team Providers Name Role Phone Not on Staff, PCP Primary Care Physician Unavailable [facility]): [facility] Attending Physician: Not on Staff, Attending MD Referring Physician: Johnny Tovar MD Allergies, Adverse Reactions, Alerts No Known Allergies [...] Conj Vaccine (oldterm)15 92 Given 1Result Comment: [facility] [phone] Note: VGO3Fgdnj Note: OFE5Ovvtq Note: vis Admin Note: TDAP HTNHD4Qgyou Note: TD. hx varicella age 19Admin Note: HEP Z8Csrty Note: HEP Y3Hktwm Note: HEP H24Euohh Note: TPB12Bxjcu Note: DTP12 Admin Note: ZPC40Rcnqb Note: VTG54Xqsxh Note: YRM34Ijtoh Note: HIB Medications Depo-Provera Contraceptive 150 mg/mL intramuscular suspension 1 mL = 150 mg, Intramuscular, Every 3 months, # 1 mL, 3 Refills, Maintenance, 08/20/21 10:46:00 EST,Suspension, [facility]/pharmacy #1230, Partial fill upon patient request if the prescription is for a schedule II opioid drug., 155, cm, 08/20/21 10:04:00 ES... Start Date: 08/20/21 Status: OrderedPlan B One-Step 1.5 mg oral tablet 1.5 mg, 1, tablet, By Mouth, Once, use within 72 hours, # 1 tablet, Refills 1, Tot. Refills 1, Soft Stop, 08/17/21 17:32:00 EST, Route to Pharmacy Electronically, [facility]/pharmacy #[id number], Partial fill upon patient request if [...] oldest [Reference Range]: 1 Height 155 cm (08/20/21 10:04 AM) Social History Social History Type Response Smoking Status Former smoker, quit more yaya n 30 days ago; Type: Cigarettes; Other: Smoked on/off for about five years. About 1-2 cigarettes. Quit around 2016; entered on: 11/22/18 Sex
--- OUTSIDE RECORDS SUMMARY | 2022-04-20 01:50 | XMS_ITS | Continuity of Care Document ---
:1990 Author Organization [facility] Address [address] [place] [address]- Care Team Providers Name Role Phone Not on Staff, PCP Primary Care Physician Unavailable Encounter [facility] Date(s): 11/22/20 - 11/24/20 [facility] [address] [place] [address] Discharge Disposition: A-D/C Home Attending Physician: Rupal Gates MD Admitting Physician: Rupal Gates MD Referring Physician: Rupal Gates MD Allergies, Adverse Reactions, Alerts Substance Reaction [...] Conj Vaccine (oldterm)15 92 Given 1Result Comment: [facility] [phone] Note: JOO4Vszdw Note: BHG7Mdhba Note: vis Admin Note: TDAP UJBVH5Wlbdk Note: TD. hx varicella age 19Admin Note: HEP S9Hlikm Note: HEP Z7Haozp Note: HEP P36Oyxkt Note: PFO19Bbaso Note: DTP12 Admin Note: SHZ39Trldu Note: MPY39Awspc Note: ZSW49Wafaf Note: HIB Medications acetaminophen 325 mg oral [...] 11/24/20 9:42:00 EDT, Route to Pharmacy Electronically, [facility]/pharmacy #[id number], Partial fill upon patient request if the prescription is for a... Start Date: 11/24/20 Status: OrderedAcetaminophen Tablet 650 mg, Tablet, By Mouth, Every 4 hours, PRN for Pain , Mild, (1-3), may give 325mg per patient preference and re-dose with 325mg within 4 hours, if needed. Patient should only receive a total of 650mgof Acetaminophen every 4 hours., Routine, 11/22... Start Date: 11/22/20 Stop Date: 12/22/20 Status: Orderedferrous sulfate 325 mg oral tablet 1 tablet = 325 mg, By Mouth, Daily, # 30 tablet, 4 Refills, Maintenance, 10/02/20 10:34:00 EDT, [facility]/pharmacy #1230, Partial fill upon [...] 11/24/20 9:44:00 EDT, Route to Pharmacy Electronically, [facility]/pharmacy #[id number], Partial fill upon [...] Pain , M... Start Date: 11/24/20 Status: OrderedIbuprofen Tablet 800 mg, Tablet, By Mouth, Every 8 hours, PRN for Pain , Moderate, (4-6), may give 400mg per patient preference and re-dose with 400mg within 8 hours if needed. Patient should only receive a total of 800mg of Ibuprofen every 8 hours., Routine, ... Start Date: 11/22/20 Stop Date: 12/06/20 Status: OrderedPrenatal Multivitamins By Mouth, Daily, 0 [...] Active Vital Signs Most recent to oldest 1 2 3 4 [Reference Range]: Height 155 cm 155 cm 155 cm (11/24/20 10:35 AM) (11/23/20 3:47 PM) (11/23/20 10:50 AM) Weight 97.3 kg 97.3 kg (11/22/20 11:56 AM) (11/22/20 12:24 AM) Oxygen Saturation 96 % 97 % 99 % [94-100 %] (11/23/20 4:32 AM) (11/22/20 11:57 PM) (11/22/20 10:30 PM) Pulse Rate [55-90 bpm] 83 bpm 74 bpm 70 bpm (11/24/20 3:44 PM) (11/24/20 10:35 AM) (11/24/20 2:16 AM) Body Mass Index 40.5 [18.5-24.99] *>HHI* (11/22/20 11:56 AM) Blood Pressure 122/61 mm Hg 100/53 mm Hg 109/58 mm Hg [90-138/55-84 mm Hg] (11/24/20 3:44 PM) (11/24/20 10:35 AM) (11/24/20 2:16 AM) Respiratory Rate 18 br/min 18 br/min 18 br/min 18 br/min [16-30 br/min] (11/24/20 3:44 PM) (11/24/20 10:35 AM) (11/24/20 9:43 A M) (11/24/20 9:43 AM) Temperature 98.4 DegF 98.1 DegF 98.3 DegF [96.8-100.4 DegF] (11/24/20 3:44 PM) (11/24/20 10:35 AM) (11/24/20 2:1 6 AM) Mode of Delivery Room air Room air Room air (Oxygen) (11/23/20 4:32 AM) (11/22/20 11:57 PM) (11/22/20 1:00 AM) Blood pressure sites Arm, right Arm, right Arm, right (11/23/20 3:47 PM) (11/23/20 10:50 AM) (11/23/20 4:32 AM) Temperature Route Oral Oral Oral (11/24/20 3:44 PM) (11/24/20 10:35 AM) (11/24/20 2:16 AM) Dry Weight 97.3 kg 97.3 kg (11/22/20 11:56 AM) (11/22/20 12:24 AM) Weight Obtained Via Standing scale (11/22/20 12:24 AM) Dry Weight Obtained Standing scale Via (11/22/20 12:24 AM) Social History Social History Type Response Smoking Status Former smoker, quit more yaya n 30 days ago; Type: Cigarettes; Other: Smoked on/off for about five years. About 1-2 cigarettes. Quit around 2016; entered on: 11/22/18 Sex
--- OUTSIDE RECORDS SUMMARY | 2022-04-20 01:50 | XMS_ITS | Continuity of Care Document ---
:1990 Author Organization [facility] Address [address] [place] [address]- Care Team Providers Name Role Phone Not on Staff, PCP Primary Care Physician Unavailable [facility] 04[facility]20 - 05/01/20 [facility] [address] [place] [address]- [facility] Allergies, Adverse Reactions, Alerts Substance [...] Conj Vaccine (oldterm)14 92 Given 1Admin Note: RHU7Csode Note: YWT3Jpuou Note: vis 08/19/064Admin Note: TDAP GIVEN5 Admin Note: TD. hx varicella age 18Admin Note: HEP M8Dyphi Note: HEP U4Dhnhu Note: HEP I4Flrii Note: LOC50Cfvgr Note: MKW38Vlwrx Note: TZL80Kylaa Note: DTP13 Admin Note: OER09Hutgv Note: HIB Medications Multivitamins By Mouth, Daily, [...]
--- OUTSIDE RECORDS SUMMARY | 2022-04-20 01:50 | XMS_ITS | Continuity of Care Document ---
:1990 Author Organization [facility] Address [address] [address]- Care Team Providers Name Role Phone Not on Staff, PCP Primary Care Physician Unavailable [facility] Date[facility]s): 11/13/20 - 11/20/20 [facility] [address] [place] [address] Attending Physician: Not on Staff, Attending MD [...] Vaccine (oldterm)15 92 Given 1Result Comment: [facility] [phone] Note: GEA2Jkzax Note: CXK1Jglux Note: vis Admin Note: TDAP VNSYQ9Wfsek Note: TD. hx varicella age 19Admin Note: HEP Y7Zbypx Note: HEP R0Iibzp Note: HEP X50Zbzkz Note: RRE71Sndlb Note: DTP12 Admin Note: MUK90Buifa Note: ILV35Vupki Note: DID54Wbksx Note: HIB Medications ferrous sulfate 325 mg oral tablet 1 tablet = 325 mg, By Mouth, Daily, # 30 tablet, 4 Refills, Maintenance, 10/02/20 10:34:00 EDT, [facility]/pharmacy #1230, Partial fill upon patient request if [...] oldest [Reference Range]: 1 Height 155 cm (11/13/20 11:48 AM) Social History Social History Type Response Smoking Status Former smoker, quit more yaya n 30 days ago; Type: Cigarettes; Other: Smoked on/off for about five years. About 1-2 cigarettes. Quit around 2016; entered on: 11/22/18 Sex
--- OUTSIDE RECORDS SUMMARY | 2022-04-20 01:50 | XMS_ITS | Continuity of Care Document ---
:1990 Author Organization [facility] Address [address] [place] [address]- Care Team Providers Name Role Phone Not on Staff, PCP Primary Care Physician Unavailable [facility]s): 10/02/20 - 11/01/20 [facility] [address] [place], [place] [address] Allergies, Adverse Reactions, Alerts Substance Reaction [...] Conj Vaccine (oldterm)15 92 Given 1Result Comment: [facility] [phone] Note: ESP8Wfngm Note: QRF9Hkijo Note: vis Admin Note: TDAP TLGJK5Eyljw Note: TD. hx varicella age 19Admin Note: HEP G4Zrevt Note: HEP Q0Bkijw Note: HEP J77Qferm Note: RJV76Drrgx Note: DTP12 Admin Note: NPW62Jppog Note: KIF18Aqala Note: TJX23Ipnui Note: HIB Medications ferrous sulfate 325 mg [...]
--- OUTSIDE RECORDS SUMMARY | 2022-04-20 01:50 | XMS_ITS | Continuity of Care Document ---
:1990 Author Organization [facility] Address [address] [place] [address]- Care Team Providers Name Role Phone Not on Staff, PCP Primary Care Physician Unavailable [facility]): 04/08/20 - 05/08/20 [facility] [address] [place] [address]- [facility] Allergies, Adverse Reactions, Alerts Substance Reaction [...] Conj Vaccine (oldterm)14 92 Given 1Admin Note: IJB3Oexrn Note: KKY0Cpdud Note: vis 074Admin Note: TDAP GIVEN5 Admin Note: TD. hx varicella age 18Admin Note: HEP B0Wapnw Note: HEP X2Qjpbc Note: HEP D5Rbhbp Note: XDG23Luwsk Note: HDD08Usepn Note: ZXX40Dywte Note: DTP13 Admin Note: CJH61Idgwq Note: HIB Medications Multivitamins By Mouth, Daily, [...]
--- OUTSIDE RECORDS SUMMARY | 2022-04-20 01:51 | XMS_ITS | Continuity of Care Document ---
:1990 Author Organization [facility] Address [address] [place] [address]- Care Team Providers Name Role Phone Not on Staff, PCP Primary Care Physician Unavailable [facility] 08[facility]20 - 09/27/[address] [address] Attending Physician: Not on Staff, Attending [...] Vaccine (oldterm)15 92 Given 1Result Comment: [facility] [phone] Note: GOK4Gircf Note: PSH5Dxggr Note: vis Admin Note: TDAP UZVZQ5Dxqqw Note: TD. hx varicella age 19Admin Note: HEP U0Freuz Note: HEP X3Erfqd Note: HEP B11Fjamr Note: YTV54Lchui Note: DTP12 Admin Note: MNW81Dbaca Note: UDN80Plkzn Note: SGV91Amtvo Note: HIB Medications Multivitamins By Mouth, Daily, [...]
--- OUTSIDE RECORDS SUMMARY | 2022-04-20 01:51 | XMS_ITS | Continuity of Care Document ---
:1990 Author Organization [facility] Address Unavailable , Care Team Providers Name Role Phone Not on Staff, PCP Primary Care Physician Unavailable [facility] Allergies, Adverse Reactions, Alerts No Known Allergies [...] Given 1Result Comment: [facility] [phone] Note: FMF0Qdukf Note: ZOG6Rhutx Note: vis Admin Note: TDAP XXLKB8Mgjrf Note: TD. hx varicella age 19Admin Note: HEP R9Fndvx Note: HEP F6Jtdrd Note: HEP I07Fcopy Note: COO08Jqhoi Note: DTP12 Admin Note: QNP84Xkirc Note: ENA77Rjnkt Note: HHE41Hcelr Note: HIB Medications Depo-Provera Contraceptive 150 mg/mL intramuscular suspension 1 mL = 150 mg, Intramuscular, Every 3 months, # 1 mL, 3 Refills, Maintenance, 08/20/21 10:46:00 EST,Suspension, [id number], Partial fill upon patient request if the prescription is for a schedule II opioid drug., 155, cm, 08/20/21 10:04:00 ES... Start Date: 08/20/21 Status: OrderedPlan B One-Step 1.5 mg oral tablet 1.5 mg, 1, tablet, By Mouth, Once, use within 72 hours, # 1 tablet, Refills 1, Tot. Refills 1, Soft Stop, 08/17/21 17:32:00 EST, Route to Pharmacy Electronically, [facility]/pharmacy #[id number], Partial fill upon patient request if [...]
--- OUTSIDE RECORDS SUMMARY | 2022-04-20 01:51 | XMS_ITS | Continuity of Care Document ---
:1990 Author Organization [facility] Address [address] [place] [address]- Care Team Providers Name Role Phone Not on Staff, PCP Primary Care Physician Unavailable [facility]): 10/[facility]/20 - 10/09/[address] [address] Attending Physician: Not on Staff, Attending MD Referring Physician: Constantin TERRY [employer] CONSULTANT, Brent Sanchez Allergies, Adverse Reactions, Alerts Substance [...] Vaccine (oldterm)15 92 Given 1Result Comment: [facility] [phone] Note: MXY3Yizyd Note: AXP3Osycr Note: vis Admin Note: TDAP BMARE0Hsyom Note: TD. hx varicella age 19Admin Note: HEP R4Tbavw Note: HEP A4Jkqto Note: HEP B72Pedce Note: DJQ88Ggxkg Note: DTP12 Admin Note: YDP88Gqceq Note: TIG03Mptmy Note: UXB83Vvxdo Note: HIB Medications ferrous sulfate 325 mg [...]
--- OUTSIDE RECORDS SUMMARY | 2022-04-20 01:51 | XMS_ITS | Continuity of Care Document ---
:1990 Author Organization [facility] Address [address] [address]- Care Team Providers Name Role Phone Not on Staff, PCP Primary Care Physician Unavailable [facility]): 10/30/20 - 11/06/20 [facility] [address] [place] [address] Attending Physician: Not on Staff, Attending MD Referring Physician: Constantin TERRY [employer]STA[employer]ID, Brent Sanchez Allergies, Adverse Reactions, Alerts Substance [...] Conj Vaccine (oldterm)15 92 Given 1Result Comment: [facility] [phone] Note: SMU8Hhfnl Note: PFK6Jogdr Note: vis Admin Note: TDAP VQKWC6Kghmk Note: TD. hx varicella age 19Admin Note: HEP W4Npdac Note: HEP U7Ocqjh Note: HEP R74Jiyaw Note: WRN29Kknvv Note: DTP12 Admin Note: PVN58Bxykk Note: PPX93Dijiw Note: ZRH61Xmrzp Note: HIB Medications ferrous sulfate 325 mg [...] oldest [Reference Range]: 1 Height 155 cm (10/30/20 11:15 AM) Weight 93.9 kg (10/30/20 11:15 AM) Body Mass Index [18.5-24.99] 39.08 *>HHI* (10/30/20 11:15 AM) Blood Pressure [90-138/55-84 mm Hg] 112/66 mm Hg (10/30/20 11:15 AM) Temperature [96.8-100.4 DegF] 97.2 DegF (10/30/20 11:15 AM) Blood pressure sites Arm, right (10/30/20 11:15 AM) Dry Weight 93.9 kg (10/30/20 11:15 AM) Weight Obtained Via Standing scale (10/30/20 11:15 AM) Dry Weight Obtained Via Standing scale (10/30/20 11:15 AM) Social History Social History Type Response Smoking Status Former smoker, quit more yaya n 30 days ago; Type: Cigarettes; Other: Smoked on/off for about five years. About 1-2 cigarettes. Quit around 2016; entered on: 11/22/18 Sex
--- OUTSIDE RECORDS SUMMARY | 2022-04-20 01:51 | XMS_ITS | Continuity of Care Document ---
:1990 Author Organization [facility] Address [address] [place] [address]- Care Team Providers Name Role Phone Not on Staff, PCP Primary Care Physician Unavailable [facility]counter [facility] Date[facility]s): 01/08/21 - 01/15/[address] [address] Attending Physician: Stephanie Arreola CNM Referring Physician: Omkar Pineda CNM Allergies, Adverse Reactions, Alerts Substance Reaction [...] Vaccine (oldterm)15 92 Given 1Result Comment: [facility] [phone] Note: QYM0Muenp Note: BMD6Lyxus Note: vis Admin Note: TDAP LLYDR7Owwhh Note: TD. hx varicella age 19Admin Note: HEP M7Sniqs Note: HEP A2Hsifl Note: HEP Q76Ijkoi Note: MHY23Aeqop Note: DTP12 Admin Note: GRH68Boeon Note: EZX24Jcohq Note: HEO79Dorvr Note: HIB Medications acetaminophen 325 mg oral [...] 11/24/20 9:42:00 EDT, Route to Pharmacy Electronically, [facility]/pharmacy #[id number], Partial fill upon patient request if the prescription is for a... Start Date: 11/24/20 Status: Orderedferrous sulfate 325 mg oral tablet 1 tablet = 325 mg, By Mouth, Daily, # 30 tablet, 4 Refills, Maintenance, 10/02/20 10:34:00 EDT, [facility]/pharmacy #[id number], Partial fill upon patient request if [...] 11/24/20 9:44:00 EDT, Route to Pharmacy Electronically, [facility]/pharmacy #[id number], Partial fill upon patient request if the [...] as directed DOI 03-05-21 Please Mail to [facility] Dinorah Ballard OVERHEAD CRANE TRUCK LOADER ATTN [address] [address], # 1 each, 0 Refills, Soft Stop, 01/08/21 10:13:00 EDT, [facility], Partial fill upon... Start [...] oldest [Reference Range]: 1 Height 155 cm (01/08/21 9:13 AM) Weight 88.7 kg (01/08/21 9:13 AM) Body Mass Index [18.5-24.99] 36.92 *>HHI* (01/08/21 9:13 AM) Blood Pressure [90-138/55-84 mm Hg] 115/64 mm Hg (01/08/21 9:13 AM) Blood pressure sites Arm, right (01/08/21 9:13 AM) Dry Weight 88.7 kg (01/08/21 9:13 AM) Weight Obtained Via Standing scale (01/08/21 9:13 AM) Dry Weight Obtained Via Standing scale (01/08/21 9:13 AM) Social History Social History Type Response Smoking Status Former smoker, quit more yaya n 30 days ago; Type: Cigarettes; Other: Smoked on/off for about five years. About 1-2 cigarettes. Quit around 2016; entered on: 11/22/18 Sex
--- OUTSIDE RECORDS SUMMARY | 2022-04-20 01:51 | XMS_ITS | Continuity of Care Document ---
:1990 Author Organization [facility] Address [address] [place] [address]- Care Team Providers Name Role Phone Not on Staff, PCP Primary Care Physician Unavailable [facility]s): 04/07/20 - 04/14/20 [facility] [address] [place] [address]- [facility] Attending Physician: Not on Staff, Attending MD Referring Physician: Abbi Thorpe MD Allergies, Adverse Reactions, Alerts Substance Reaction [...] Whl Cell/Tet(oldterm)10 09/24/94 Given Diphth/Pertussis, Whl Cell/Tet(oldterm)11 2/4/94 Given Diphth/Pertussis, Whl Cell/Tet(oldterm)12 92 Given Diphth/Pertussis, Whl Cell/Tet(oldterm)13 92 Given Haemophilus B Conj Vaccine (oldterm)14 92 Given 1Admin Note: GQF0Zfqpm Note: FNL4Xhvwe Note: vis 08/19/064Admin Note: TDAP GIVEN5 Admin Note: TD. hx varicella age 18Admin Note: HEP Y0Bfawy Note: HEP S4Pemuh Note: HEP U9Benpn Note: IWB65Zvenz Note: TLE57Ngszm Note: MCD75Hxohr Note: DTP13 Admin Note: BRH44Nvgrm Note: HIB Medications Multivitamins By Mouth, Daily, [...]
--- OUTSIDE RECORDS SUMMARY | 2022-04-20 01:51 | XMS_ITS | Continuity of Care Document ---
:1990 Author Organization [facility] Address [address] [place] [address]- Care Team Providers Name Role Phone Not on Staff, PCP Primary Care Physician Unavailable [facility]counter [facility] Date(s): 04/15/20 - 04/22/20 [facility] [address] [place] [address]- [facility] Attending Physician: Not on Staff, Attending [...] Conj Vaccine (oldterm)14 92 Given 1Admin Note: BQK2Mmwud Note: DKQ3Yjeft Note: vis 08/19/064Admin Note: TDAP GIVEN5 Admin Note: TD. hx varicella age 18Admin Note: HEP F5Myqbn Note: HEP R4Fusjs Note: HEP Z7Nxfcn Note: YIG06Jcodq Note: LFE91Sjwhg Note: XPP58Qdbay Note: DTP13 Admin Note: QOA95Covnz Note: HIB Medications Multivitamins By Mouth, Daily, [...] oldest [Reference Range]: 1 Height 155 cm (04/15/20 1:39 PM) Social History Social History Type Response Smoking Status Former smoker, quit more yaya n 30 days ago; Type: Cigarettes; Other: Smoked on/off for about five years. About 1-2 cigarettes. Quit around 2016; entered on: 11/22/18 Sex
--- OUTSIDE RECORDS SUMMARY | 2022-04-20 01:51 | XMS_ITS | Continuity of Care Document ---
:1990 Author Organization [facility] Address [address] [address]- Care Team Providers Name Role Phone Not on Staff, PCP Primary Care Physician Unavailable [facility]s): 10/16/20 - 12/13/20 [facility] [address] [place] [address] Attending Physician: Not on Staff, Attending [...] (oldterm)15 92 Given 1Result Comment: [facility] [phone] Note: PJI5Xmlxu Note: KVW7Cxzex Note: vis Admin Note: TDAP UISCY3Rfiqb Note: TD. hx varicella age 19Admin Note: HEP U1Nohkp Note: HEP E7Ogfgl Note: HEP Q57Ymqzh Note: QFU95Yfwfr Note: DTP12 Admin Note: SOR13Sgnpb Note: FXP24Zrnqa Note: OCY06Zysnf Note: HIB Medications acetaminophen 325 mg oral [...] 11/24/20 9:42:00 EDT, Route to Pharmacy Electronically, [facility]/pharmacy #[id number], Partial fill upon patient request if the prescription is for a... Start Date: 11/24/20 Status: Orderedferrous sulfate 325 mg oral tablet 1 tablet = 325 mg, By Mouth, Daily, # 30 tablet, 4 Refills, Maintenance, 10/02/20 10:34:00 EDT, [facility]/pharmacy #[id number], Partial fill upon patient request [...] 11/24/20 9:44:00 EDT, Route to Pharmacy Electronically, [facility]/pharmacy #[id number], Partial fill upon patient request if the [...]
--- OUTSIDE RECORDS SUMMARY | 2022-04-20 01:51 | XMS_ITS | Continuity of Care Document ---
:1990 Author Organization [facility] Address [address] [place] [address]- Care Team Providers Name Role Phone Not on Staff, PCP Primary Care Physician Unavailable [facility]counter [facility] Date(s): 07/17/20 - 07/24/[address] [address]- Attending Physician: Not on Staff, Attending MD Referring Physician: Constantin TERRY CRTS, Brent Sanchez Allergies, Adverse Reactions, Alerts Substance [...] Conj Vaccine (oldterm)14 92 Given 1Admin Note: JRU6Bwcnx Note: HJN1Kfhgx Note: vis 08/19/064Admin Note: TDAP GIVEN5 Admin Note: TD. hx varicella age 18Admin Note: HEP N9Kcara Note: HEP Q2Vhahb Note: HEP W3Rzmgs Note: JGL43Jbfvh Note: LOZ23Kclfi Note: RZC76Heypu Note: DTP13 Admin Note: VQJ93Rvdzk Note: HIB Medications Multivitamins By Mouth, Daily, [...] oldest [Reference Range]: 1 Height 155 cm (07/17/20 11:43 AM) Social History Social History Type Response Smoking Status Former smoker, quit more yaya n 30 days ago; Type: Cigarettes; Other: Smoked on/off for about five years. About 1-2 cigarettes. Quit around 2016; entered on: 11/22/18 Sex
--- OUTSIDE RECORDS SUMMARY | 2022-04-20 01:51 | XMS_ITS | Continuity of Care Document ---
:1990 Author Organization [facility] Address [address] [place] [address]- Care Team Providers Name Role Phone Not on Staff, PCP Primary Care Physician Unavailable [facility]counter [facility]s): 04/15/20 - 05/15/20 [facility] [address] [place] [address]- [facility] Attending Physician: Hilton Silva Admitting Physician: Hilton Silva Referring Physician: AdmtrHilton Allergies, Adverse Reactions, Alerts Substance Reaction Severity [...] Conj Vaccine (oldterm)14 92 Given 1Admin Note: BUF2Pabxz Note: NBS3Miyzm Note: vis 08/19/064Admin Note: TDAP GIVEN5 Admin Note: TD. hx varicella age 18Admin Note: HEP N0Piaod Note: HEP W3Dnuwb Note: HEP P3Kwkve Note: ZVH83Crexi Note: HKS48Wnzar Note: MDZ24Edzxr Note: DTP13 Admin Note: TQF03Arwqp Note: HIB Medications Multivitamins By Mouth, Daily, [...] Obesity(Confirmed) Active Need for MMR vaccine(Confirmed) Active Procedures Procedure Date Related Diagnosis Body Site Status Appendectomy 2009 Completed Vital Signs Most recent to oldest [Reference Range]: 1 Height 155.00 cm (11/22/18 10:56 AM) Social History Social History Type Response Smoking Status Former smoker, quit more yaya n 30 days ago; Type: Cigarettes; Other: Smoked on/off for about five years. About 1-2 cigarettes. Quit around 2016; entered on: 11/22/18 Sex
--- OUTSIDE RECORDS SUMMARY | 2022-04-20 01:51 | XMS_ITS | Continuity of Care Document ---
:1990 Author Organization [facility] Address [address] [place] [address]- Care Team Providers Name Role Phone Not on Staff, PCP Primary Care Physician Unavailable [facility]counter [facility] Date(s): 07/04/20 - 08/03/20 [facility] [address] [place] [address] Attending Physician: Hilton Silva Admitting Physician: [...] Conj Vaccine (oldterm)14 92 Given 1Admin Note: LID4Txwqf Note: TZJ7Aoipp Note: vis 08/19/064Admin Note: TDAP GIVEN5 Admin Note: TD. hx varicella age 18Admin Note: HEP A2Ttjbg Note: HEP V7Stlnm Note: HEP R1Qselq Note: LSA43Kowyw Note: WXX19Jrnoc Note: KQR94Ojfcj Note: DTP13 Admin Note: ZPA52Rwddq Note: HIB Medications Multivitamins By Mouth, Daily, [...]
--- OUTSIDE RECORDS SUMMARY | 2022-04-20 01:51 | XMS_ITS | Continuity of Care Document ---
:1990 Author Organization [facility] Address Unavailable , Care Team Providers Name Role Phone Not on Staff, PCP Primary Care Physician Unavailable [facility]counter [facility] Date[facility]s): 05/18/21 - 06/17/21 [facility] Attending Physician: Hilton Silva Admitting Physician: [...] Comment: [facility] [phone] Note: ZDW4Cstqj Note: RHQ7Hlkup Note: vis Admin Note: TDAP WYJGI5Kqqgj Note: TD. hx varicella age 19Admin Note: HEP B9Lbogs Note: HEP Z4Dleqo Note: HEP J66Clcjg Note: VOZ18Rqxyb Note: DTP12 Admin Note: BER18Uffbe Note: LTR02Cznxf Note: BOY50Sebty Note: HIB Medications acetaminophen 325 mg oral [...] 11/24/20 9:42:00 EDT, Route to Pharmacy Electronically, [facility]/pharmacy #[id number], Partial fill upon patient request if the prescription is for a... Start Date: 11/24/20 Status: Orderedferrous sulfate 325 mg oral tablet 1 tablet = 325 mg, By Mouth, Daily, # 30 tablet, 4 Refills, Maintenance, 10/02/20 10:34:00 EDT, [facility]/pharmacy #[id number], Partial fill upon patient request if [...] 11/24/20 9:44:00 EDT, Route to Pharmacy Electronically, [facility]/pharmacy #[id number], Partial fill upon patient request if [...] as directed DOI 03-05-21 Please Mail to [facility] Dinorah Ballard REGULATORY ASSISTANT ATTN [address] [address], # 1 each, 0 Refills, Soft Stop, 01/08/21 10:13:00 EDT, [facility], Partial fill upon... Start Date: [...]
--- OUTSIDE RECORDS SUMMARY | 2022-04-20 01:51 | XMS_ITS | Continuity of Care Document ---
:1990 Author Organization [facility] Address [address] [place] [address]- Care Team Providers Name Role Phone Not on Staff, PCP Primary Care Physician Unavailable [facility]counter [facility] Date(s): 09/04/20 - 09/11/[address] [address]- Attending Physician: Not on Staff, Attending MD [...] Conj Vaccine (oldterm)15 92 Given 1Result Comment: [facility] [phone] Note: YMW4Bhrlg Note: YBG6Sewgs Note: vis Admin Note: TDAP XURFD6Capst Note: TD. hx varicella age 19Admin Note: HEP N2Orler Note: HEP F4Avbkj Note: HEP Y29Fszfs Note: FUJ53Peqcp Note: DTP12 Admin Note: FGM34Ikroi Note: SYS70Wzkid Note: SRG58Qnkuo Note: HIB Medications Multivitamins By Mouth, Daily, [...] oldest [Reference Range]: 1 Height 155 cm (09/04/20 10:37 AM) Weight 88.1 kg (09/04/20 10:37 AM) Body Mass Index [18.5-24.99] 36.67 *>HHI* (09/04/20 10:37 AM) Blood Pressure [90-138/55-84 mm Hg] 109/62 mm Hg (09/04/20 10:37 AM) Temperature [96.8-100.4 DegF] 96.7 DegF *L* (09/04/20 10:37 AM) Blood pressure sites Arm, right (09/04/20 10:37 AM) Dry Weight 88.1 kg (09/04/20 10:37 AM) Weight Obtained Via Standing scale (09/04/20 10:37 AM) Dry Weight Obtained Via Standing scale (09/04/20 10:37 AM) Social History Social History Type Response Smoking Status Former smoker, quit more yaya n 30 days ago; Type: Cigarettes; Other: Smoked on/off for about five years. About 1-2 cigarettes. Quit around 2016; entered on: 11/22/18 Sex
--- OUTSIDE RECORDS SUMMARY | 2022-04-20 01:51 | XMS_ITS | Continuity of Care Document ---
:1990 Author Organization [facility] Address [address] [place] [address]- Care Team Providers Name Role Phone Not on Staff, PCP Primary Care Physician Unavailable [facility]s): 01/08/21 - 02/07/[address] [address]- Attending Physician: Hilton Silva Admitting Physician: Hilton [...] (oldterm)15 92 Given 1Result Comment: [facility] [phone] Note: MDM7Ciqga Note: XLD6Vtqlg Note: vis Admin Note: TDAP MPQAZ6Ziyat Note: TD. hx varicella age 19Admin Note: HEP X1Otlow Note: HEP P5Tpdpw Note: HEP M55Hbxpi Note: QYT71Zqvsk Note: DTP12 Admin Note: TML72Jbnau Note: YZU61Fjhqx Note: NAA68Ndooj Note: HIB Medications acetaminophen 325 mg oral [...] 11/24/20 9:42:00 EDT, Route to Pharmacy Electronically, [facility]/pharmacy #[id number], Partial fill upon patient request if the prescription is for a... Start Date: 11/24/20 Status: Orderedferrous sulfate 325 mg oral tablet 1 tablet = 325 mg, By Mouth, Daily, # 30 tablet, 4 Refills, Maintenance, 10/02/20 10:34:00 EDT, [facility]/pharmacy #[id number], Partial fill upon [...] 11/24/20 9:44:00 EDT, Route to Pharmacy Electronically, [facility]/pharmacy #[id number], Partial fill upon [...] as directed DOI 03-05-21 Please Mail to [facility] Dinorah Ballard SO[employer]ER BALL ASSEMBLER ATTN [address] [place] [address], # 1 each, 0 Refills, Soft Stop, 01/08/21 10:13:00 EDT, [facility], Partial fill upon... Start Date: [...]
--- OUTSIDE RECORDS SUMMARY | 2022-04-20 01:51 | XMS_ITS | Continuity of Care Document ---
:1990 Author Organization [facility] Address [address] [place] [address]- Care Team Providers Name Role Phone Not on Staff, PCP Primary Care Physician Unavailable [facility]counter [facility] Date(s): 05/06/20 - 05/13/20 [facility] [address] [place] [address]- [facility] Attending Physician: Not on Staff, Attending MD [...] Conj Vaccine (oldterm)14 92 Given 1Admin Note: WVK5Ncefs Note: VDP6Enulv Note: vis 074Admin Note: TDAP GIVEN5 Admin Note: TD. hx varicella age 18Admin Note: HEP R2Hqvew Note: HEP O6Zqkud Note: HEP M6Zsqhk Note: VIL40Gbvqw Note: OPM89Useio Note: PDD84Mhehp Note: DTP13 Admin Note: BUW36Zjbwo Note: HIB Medications Multivitamins By Mouth, Daily, [...]
[2022-04-20 02:07] VITALS: BP 123/75; PULSE 77; RESP 17; TEMP 37.1; O2SAT 98
--- NOTE | 2022-04-20 02:28 | ED.NEUROSD ---
HPI - Neuro Symptoms/Deficit General Chief Complaint: Neuro Symptoms/Deficit Stated Complaint: headache, face feels numb Time Seen by Provider: 04/20/22 00:01 Source: patient Mode of arrival: ambulatory Limitations: no limitations History of Present Illness HPI Narrative: 32-year-old female came in for evaluation of right facial numbness and weakness started 3 days ago. Started with headache and right ear pain, patient started to have numbness on the right side of the face and right side of the tongue and weakness trying to close her right eye symptoms started 3 days ago, declined any fever chills. Patient declined any tick bite or history of Lyme disease. No weakness or numbness anywhere else on the body. Related Data Previous Rx's Medication Instructions Recorded amoxicillin 875 mg-potassium 1 tab PO BID Strep throat 10 days 12/04/21 clavulanate 125 mg tablet #20 tabs dexamethasone 6 mg tablet 12 mg PO ONCE Inflammation 1 day 12/04/21 (Decadron) #2 tabs carboxymethylcellulose sodium 1 % 1 drp ophthalmic (eye) QID #15 mL 04/20/22 eye drops (Artificial Tears (carboxymethylcellulose)) prednisone 20 mg tablet 20 mg PO BID #10 tabs 04/20/22 valacyclovir 1 gram tablet 1,000 mg PO TID #21 tabs 04/20/22 (Valtrex) Allergies Allergy/AdvReac Type Severity Reaction Status Date / Time No Known Allergies Allergy Verified 04/19/22 22:41 Review of Systems Review of Systems: All other systems are reviewed and are negative Constitutional: Reports as per HPI and Reports no additional constitutional complaints Eyes: Reports as per HPI and Reports no additional eye complaints Reports system reviewed and no additional complaints, except as documented Cardiovascular: Reports as per HPI and Reports no additional cardiovascular complaints Respiratory: Reports as per HPI and Reports no additional respiratory complaints Gastrointestinal: Reports as per HPI and Reports no additional gastrointestinal complaints Genitourinary: Reports no additional female genitourinary complaints Musculoskeletal: Reports no additional musculoskeletal complaints Skin/Breast: Reports system reviewed and no additional complaints, except as docu Psychiatric: Reports no additional psychiatric complaints Endocrine: Reports no additional endocrine complaints Hematologic/Lymphatic: Reports no additional hematologic/lymphatic complaints Allergic/Immunologic: Reports no additional allergic/immunologic complaints Reports system reviewed and no additional complaints, except as documented and Reports Abnormal speech present [facility] Social History Social History Advance Directives: No Advance Directives Information Provided: Yes Physical Exam Vital Signs: Vital Signs: Last Vital Signs Temp 98.7 F 04/20/22 02:07 Pulse 77 04/20/22 02:07 Resp 17 04/20/22 02:07 BP 123/75 04/20/22 02:07 Pulse Ox 98 04/20/22 02:07 O2 Del Method 04/20/22 02:07 BMI result Body Mass Index 33.8 Vital signs have been reviewed as appeared to be correct. Blood pressure normal. Heart rate normal. Respiration rate normal. Temperature normal. Oxygen saturation normal. Appearance: Alert. Oriented X3. No acute distress. Head: Normal external exam. Normocephalic. Atraumatic. No Harris signs noted. No raccoon eyes noted Eyes: PERRLA. EOMI. Conjunctiva and sclera normal. Eyelids normal. ENT: TM's Normal. Pharynx normal. Uvula midline. Moist mucous membranes. No trismus noted. No drooling noted. No muffled voice noted. No vesicle is appreciated in the auditory canal. Neck: Normal inspection. Neck supple. FROM. No adenopathy. Thyroid Normal. No meningeal signs. No neck mass noted. CVS: Normal heart rate and rhythm. Heart sound normal. No murmurs noted. Pulses normal throughout. Respiratory: No respiratory distress. Painless inspiration. Breath sounds normal. No wheezes/rales/rhonchi noted. Chest nontender. No accessory muscle usage noted or decreased air movement noted. Abdomen: Soft and nontender. Bowel sounds normal in all 4 quadrants. No distention noted. No organomegaly noted. No visible injury noted. Back: No CVA tenderness. Full range of motion noted. Skin: Skin warm and dry. Normal skin color. Normal skin turgor. No rashes/lesions/lacerations noted. Extremities: No lower extremity edema. Extremities exhibit normal range of motion. Extremities nontender. Neuro: Oriented X 3. Cranial nerve exam: II-XII are grossly intact, weakness in the forehead and upper eye lid, right facial droop with decreased sensation to light touch. No motor deficit. No sensory deficit. Reflexes normal. Course Course Course Narrative: Assessment and plan. 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 Will start the patient on 5 days of prednisone and Valtrex, will check for Lyme disease, artificial tear to the eye. MDM - Neuro Symptoms/Deficit Medical Records Attestation: I reviewed the patient's medical records. Lab Data Attestation: I reviewed the patient's lab results. Result diagrams: 04/19/22 23:10 04/19/22 23:10 Labs: Lab Results 04/19/22 04/19/22 Range/Units 23:10 23:10 WBC 9.4 (4.8-10.8) X10*3/uL RBC 4.72 (4.20-5.50) X10*6/uL Hgb 14.1 (12.0-16.0) g/dl Hct 41.0 (37.0-47.0) % MCV 86.9 (80.0-98.0) fL MCH 29.9 (27.0-33.0) pg MCHC 34.4 (31.0-35.0) g/dl RDW 12.4 (11.0-16.0) % Plt Count 291 (160-400) X10*3/uL MPV 10.4 (9.4-12.3) fL Immature Gran % (Auto) 0.3 (0.0-0.4) % Neut % (Auto) 55.1 (45-73) % Lymph % (Auto) 31.7 (20-40) % Burnett % (Auto) 10.1 (2-11) % Eos % (Auto) 2.1 (0-4) % Baso % (Auto) 0.7 (0-2) % Lymph # (Auto) 3.0 (1.2-4.9) X10*3/uL Burnett # (Auto) 1.0 (0.1-1.2) X10*3/uL Eos # (Auto) 0.2 (0.0-0.4) X10*3/uL Baso # (Auto) 0.1 (0.0-0.2) X10*3/uL Abs Immat Gran (auto) 0.03 (0.00-0.03) X10*3/uL Absolute Neuts (auto) 5.2 (2.0-8.3) x10*3/uL Absolute Nucleated RBC 0.000 (0.0-0.012) X10*3/uL Nucleated RBC % (auto) 0.0 (0.0-0.2) /100WBC Sodium 142 (135-145) mmol/L Potassium 4.3 (3.3-5.1) mmol/L Chloride 106 (96-108) mmol/L Carbon Dioxide 25 (22-29) mmol/L Anion Gap 15 (12-20) BUN 11 (9-16) mg/dL Creatinine 0.67 (0.5-1.4) mg/dL Estim Creat Clear Calc 123.3 Estimated GFR > 60 Random Glucose 97 (60-115) mg/dL Calcium 9.8 (8.4-10.2) mg/dL Imaging Data Head CT: Attestation: I personally reviewed and interpreted this imaging study as follows: Radiologist's impression: No acute intracranial abnormality including hemorrhage, mass effect, hydrocephalus, or acute territorial edematous infarction. Discharge Plan Discharge Clinical Impression: Bazzi's palsy Patient Disposition: Home, Self-Care Instructions: Bazzi Palsy (ED) Prescriptions: New valacyclovir [Valtrex] 1 gram tablet 1,000 mg PO TID Qty: 21 0RF prednisone 20 mg tablet 20 mg PO BID Qty: 10 0RF Artificial Tears (cmc) 1 % drops 1 drp ophthalmic (eye) QID Qty: 15 0RF No Action amoxicillin-pot clavulanate 875-125 mg tablet 1 tab PO BID 10 Days Qty: 20 0RF dexamethasone [Decadron] 6 mg tablet 12 mg PO ONCE 1 Days Qty: 2 0RF Referrals: Megan Thacker MD [Physician] -
[2022-04-22 04:56] LABS: Lyme Abs Screen <0.90 index
== END 2022-04-20 02:57 | disposition home or self-care (01) ==
PROVIDERS: Emergency Provider Emergency Medicine
DX: G51.0 Bell's palsy (principal); R51.9 Headache, unspecified; Z79.899 Other long term (current) drug therapy
CPT/HCPCS: 36415; 70450; 80048; 85025; 86617; 86618; 99284

== ENCOUNTER 2023-04-01 15:02 | Emergency (ER) | payer MEDICAID, SELFPAY ==
--- NOTE | ~2023-04-01 | XR_ITS ---
EXAMINATION: XR CHEST CLINICAL INFORMATION: Shortness of breath. COMPARISON: None available. TECHNIQUE: 2 views of the chest were obtained. FINDINGS: The lungs are well expanded. No focal consolidation. No pleural effusion. Cardiac silhouette is within normal limits. Gaseous distention of the colon is incidentally noted. XR/XR chest 2V IMPRESSION: No acute abnormality.
--- NOTE | 2023-04-01 15:16 | ECG_ITS ---
Test Reason : chest tightness Blood Pressure : / mmHG Vent. Rate : 071 BPM Atrial Rate : 071 BPM P-R Int : 134 ms QRS Dur : 078 ms QT Int : 382 ms P-R-T Axes : -07 049 007 degrees QTc Int : 415 ms Normal sinus rhythm with sinus arrhythmia Normal ECG No previous ECGs available Referred By: Generic ED Physician Electronically Signed By:NADEEN MONTGOMERY
[2023-04-01 15:47] VITALS: BP 116/83; PULSE 71; RESP 15; TEMP 36.8; O2SAT 99; BMI 30.6
--- NOTE | 2023-04-01 15:48 | ED.GENADULT ---
HPI - General Adult General Chief complaint: General Medical Stated complaint: COVID+/ SOB / chest tightness Related Data Previous Rx's Medication Instructions Recorded amoxicillin 875 mg-potassium 1 tab PO BID Strep throat 10 days 12/04/21 clavulanate 125 mg tablet #20 tabs dexamethasone 6 mg tablet 12 mg (2 x 6 mg) PO ONCE 12/04/21 (Decadron) Inflammation 1 day #2 tabs carboxymethylcellulose sodium 1 % 1 drp ophthalmic (eye) QID #15 mL 04/20/22 eye drops (Artificial Tears (carboxymethylcellulose)) prednisone 20 mg tablet 20 mg PO BID #10 tabs 04/20/22 valacyclovir 1 gram tablet 1,000 mg PO TID #21 tabs 04/20/22 (Valtrex) Allergies Allergy/AdvReac Type Severity Reaction Status Date / Time No Known Allergies Allergy Verified 04/19/22 22:41 [facility] Social History Social History Advance Directives: No Advance Directives Information Provided: No Physical Exam ED Vital Signs: BMI result Body Mass Index 30.6 Course Course Course Narrative: This is a rapid medical exam: Additional HPI, ROS, PE not included below will be deferred to primary provider. Patient is a 33-year-old female presenting to the ED with complaint of shortness of breath and chest tightness. States she tested positive for Covid on Tuesday. States her three children are also Covid positive. States she is currently being worked up for asthma. Plan: EKG, CXR Discharge Plan Discharge Clinical Impression: Shortness of breath Patient Disposition: Left W/O Completing Treatment Prescriptions: No Action amoxicillin-pot clavulanate 875-125 mg tablet 1 tab PO BID 10 Days Qty: 20 0RF dexamethasone [Decadron] 6 mg tablet 12 mg PO ONCE 1 Days Qty: 2 0RF valacyclovir [Valtrex] 1 gram tablet 1,000 mg PO TID Qty: 21 0RF prednisone 20 mg tablet 20 mg PO BID Qty: 10 0RF Artificial Tears (cmc) 1 % drops 1 drp ophthalmic (eye) QID Qty: 15 0RF Discharge Date/Time: 04/01/23 19:23
== END 2023-04-01 19:23 | disposition left against medical advice (07) ==
PROVIDERS: Emergency Provider Emergency Medicine
DX: R06.02 Shortness of breath (principal); R07.89 Other chest pain
CPT/HCPCS: 71046; 93005; 99283

== ENCOUNTER 2024-02-17 17:40 | Emergency (ER) | payer MEDICAID, SELFPAY ==
[2024-02-17 17:54] VITALS: BP 136/77; PULSE 83; RESP 16; TEMP 36.3; O2SAT 98; BMI 34.2
--- NOTE | 2024-02-17 18:09 | ED.EAR ---
HPI - Ear Problem General Chief complaint: Ear Problems Stated complaint: R ear pain, difficulty hearing Time Seen by Provider: 02/17/24 18:04 Source: patient Mode of arrival: ambulatory Limitations: no limitations History of Present Illness HPI Narrative: Patient is a 34-year-old female who presents to the emergency department for evaluation. Right ear pain x7 days. Was evaluated at primary care doctor's office 4 days ago, was given a prescription for Augmentin. She continued to have pain was re-evaluated by primary care doctor today and prescribed oral prednisone taper and has been given referral to ENT but does not have appointment until May. Reports continued pain and is requesting assistance with ENT appointment. Denies active drainage from the ear, denies change in hearing. Denies fevers or chills. Related Data Previous Rx's ?Medication ?Instructions ?Recorded amoxicillin 875 mg-potassium 1 tab PO BID Strep throat 10 days 12/04/21 clavulanate 125 mg tablet #20 tabs dexamethasone 6 mg tablet 12 mg (2 x 6 mg) PO ONCE 12/04/21 (Decadron) Inflammation 1 day #2 tabs carboxymethylcellulose sodium 1 % 1 drp ophthalmic (eye) QID #15 mL 04/20/22 eye drops (Artificial Tears (carboxymethylcellulose)) prednisone 20 mg tablet 20 mg PO BID #10 tabs 04/20/22 valacyclovir 1 gram tablet 1,000 mg PO TID #21 tabs 04/20/22 (Valtrex) Allergies Allergy/AdvReac Type Severity Reaction Status Date / Time No Known Allergies Allergy Verified 02/17/24 17:57 Review of Systems Review of Systems: Yes all other systems are reviewed and are negative PMFSH Past Medical History Attestation statement: The following information was validated with the patient. Source: old records reviewed Physical Exam Vital Signs: Vital Signs: Last Vital Signs Temp 97.3 F 02/17/24 17:54 Pulse 83 02/17/24 17:54 Resp 16 02/17/24 17:54 BP 136/77 02/17/24 17:54 Pulse Ox 98 02/17/24 17:54 O2 Del Method Room Air 02/17/24 17:54 BMI result Body Mass Index 34.2 Appearance: Alert.?Oriented to person, place and time. No acute distress.?Normal affect. Eyes: Pupils equal, round and reactive to light.? ENT: Pharynx normal.??TM on the right unable to be fully visualized seen or erythematous and bulging, white for/paredes exudate within the external canal. No pain upon palpation of the tragus or pinna. No mastoid tenderness Neck: Normal inspection.? Neck supple.?? CVS: Heart sounds normal. Normal heart rate and rhythm.? Pulses normal.?? Respiratory: No respiratory distress.? Lung sounds clear to auscultation bilaterally?? Skin: Skin warm and dry.? Normal skin color.? Extremities: No lower extremity edema.? Neuro: Moves all extremities spontaneously. Sensation intact bilaterally. Ambulates with normal steady gait. Medical Decision Making Medical Decision Making MDM Narrative: Patient is a 34-year-old female who presents emergency department for evaluation of acute otitis media and otitis externa has previously diagnosed by her PCP. She states that she continues to have pain. Although she saw her doctor earlier today she came to the emergency department due to her pain and is requesting an ENT appointment sooner. Patient was advised to continue course with her current treatment, she was provided with contact information for the ENT associated with our hospital in the event that she may be able to be possibly seen sooner. Differential Diagnosis Differential Diagnoses: The differential diagnosis associated with the presentation includes (Acute otitis media, otitis externa. No mastoid tenderness to suggest mastoiditis. Cervical adenopathy. No signs of systemic illness.) Admission/Observation Consideration of admission/observation: Escalation of care including admission/observation considered Prescription Management I considered prescription management with: Pain Medication and Antibiotic Continue with current course of treatment Discharge Plan Discharge Clinical Impression: Acute otitis media, Otitis externa Patient Disposition: Home, Self-Care Instructions: Otitis Externa (ED), Ear Infection (ED) Additional Instructions: As discussed, continue taking the medication as prescribed by your primary care doctor. Please call their office 1st thing Tuesday morning to see if they have been able to assist you with a sooner ENT appointment. Prescriptions: No Action amoxicillin-pot clavulanate 875-125 mg tablet 1 tab PO BID 10 Days Qty: 20 0RF dexamethasone [Decadron] 6 mg tablet 12 mg PO ONCE 1 Days Qty: 2 0RF valacyclovir [Valtrex] 1 gram tablet 1,000 mg PO TID Qty: 21 0RF prednisone 20 mg tablet 20 mg PO BID Qty: 10 0RF Artificial Tears (cmc) 1 % drops 1 drp ophthalmic (eye) QID Qty: 15 0RF Referrals: Physician,Unknown J [Primary Care Provider] - Print Language: Bruneian
--- OUTSIDE RECORDS SUMMARY | 2024-02-17 18:21 | XMS_ITS | Continuity of Care Document ---
Author Organization [facility] Address [address] [place] [id number]- Care Team Providers Care Community Arts Centre Manager Name Role Phone Urbano Mckoy DO Primary Care Physician [phone] Encounter [facility] Date(s): 02/23/23 - 03/25/23 [facility] [address] [place] [address] Allergies, Adverse Reactions, Alerts No Known Allergies Immunizations Given and Recorded Vaccine Date Status Refusal Reason tetanus/diphtheria/pertussis, acel(Tdap) 1 09/04/20 Given Measles/Mumps/Rubella Virus Vaccine 12/13/18 Given Measles/Mumps/Rubella Virus Vaccine 2 05/14/98 Giv en Measles/Mumps/Rubella Virus Vaccine 3 10/31/93 Giv en Boostrix (Tdap) (oldterm) 08/17/13 Given Human Papillomavirus Vaccine 4 02/22/08 Given Human Papillomavirus Vaccine 02/15/07 Given Meningococcal Conjugate Vaccine 02/15/07 Given Tet/Diphth/Acel, Pertussis (oldterm) 5 02/15/07 Gi kostas tetanus-diphtheria toxoids (Td) 6 05/05/05 Given Hepatitis B Vaccine (old term) 7 10/24/02 Given Hepatitis B Vaccine (old term) 8 04/30/02 Given Hepatitis B Vaccine (old term) 9 03/26/02 Given Poliovirus Vaccine, Inactivated 03/18/98 Given Poliovirus Vaccine, Inactivated 09/24/94 Given Poliovirus Vaccine, Inactivated 08/21/93 Given Poliovirus Vaccine, Inactivated 92 Given Diphth/Pertussis, Whl Cell/Tet(oldterm) 10 03/18/98 Given Diphth/Pertussis, Whl Cell/Tet(oldterm) 11 09/24/94 Given Diphth/Pertussis, Whl Cell/Tet(oldterm) 12 08/21/93 Given Diphth/Pertussis, Whl Cell/Tet(oldterm) 13 92 Given Diphth/Pertussis, Whl Cell/Tet(oldterm) 14 92 Given Haemophilus B Conj Vaccine (oldterm) 15 92 G iven 1Result Comment: [facility] [id number] 2Admin Note: MMR 3Admin Note: MMR 4Admin Note: vis 08/19/06 5Admin Note: TDAP GIVEN 6Admin Note: TD. hx varicella age 3 7Admin Note: HEP B 8Admin Note: HEP B 9Admin Note: HEP B 10Admin Note: DTP 11Admin Note: DTP 12Admin Note: DTP 13Admin Note: DTP 14Admin Note: DTP 15Admin Note: HIB Medications Depo-Provera Contraceptive 150 mg/mL intramuscular suspension 1 mL = 150 mg, Intramuscular, Every 3 months, # 1 mL, 3 Refills, Maintenance, 12/16/22 15:36:00 EDT, Suspension, [id number], Partial fill upon patient request if the prescription is for a schedule II opioid drug., 155, cm, 12/16/22 14:33:00 ED... Start Date: 12/16/22 Status: Ordered Problem List Condition Confirmation Course Effective Dates Status H ealth Status Informant ADHD - Attention deficit disorder with hyperactivity Confirmed Active Anxiety Confirmed Active Hx of Dermoid cyst of ovary Confirmed Active Family history of colon cancer Confirmed Active Family history of ovarian cancer Confirmed Active Obese class I Confirmed Active Social History Social History Type Response Smoking Status Former smoker, quit more than 30 days ago; Type: Cigarettes; Other: Smoked on/off for about five years. About 1-2 cigarettes. Quit around 2016; entered on: 11/22/18 Sex Patient Care team information Care Team Personnel Name: Urbano Mckoy DO Position: Reference Physician Member Role: PCP Address: Address: [address] [place] [address] Dr mueller [facility] [place] [address]- Care Team Related Persons Name: KIYA SUTHERLAND Address: home [address] [place] [address] [address] [place] [address] Name: ERICKA GUTIERREZ Address: [id number] Address: [address] [address] [place] Name: SUSAN GUTIERREZ Address: [address] Address: home [address] [address] [place] Name: JOSS JOHANSEN Address: [address] [place] [address] Name: JOHN BARROW Address: [address] [place] [address]
--- OUTSIDE RECORDS SUMMARY | 2024-02-17 18:22 | XMS_ITS | Continuity of Care Document ---
Author Organization [facility] Address [address] [place] [address]- Care Team Providers Care Restaurant Expeditor Name Role Phone Urbano Mckoy DO Primary Care Physician [facility]counter [facility] Date(s): 02/23/23 - 04/23/23 [facility] [address] [place] [id number]- Attending Physician: Not on Staff, Attending MD Referring Physician: Urbano Mckoy DO Allergies, Adverse Reactions, Alerts No Known Allergies [...] (oldterm) 15 92 G iven 1Result Comment: [facility] [id number] 2Admin Note: MMR 3Admin Note: MMR 4Admin [...] Reference Physician Member Role: PCP Address: Address: [address] [place] [address] [place] [address] [place] [address]- Care Team Related Persons Name: KIYA SUTHERLAND Address: home [address] [place], [place] [address], [place] Name: ERICKA GUTIERREZ Address: Address: [address] [place] Name: USSAN GUTIERREZ Address: Address: home [address] [place] Name: JOSS JOHANSEN Address: [address] [place] [address] Name: JOHN BARROW Address: [address] [place] [address]
--- OUTSIDE RECORDS SUMMARY | 2024-02-17 18:22 | XMS_ITS | Continuity of Care Document ---
Author Organization [facility] Address [address] [place] [address]- Care Team Providers Care Business Development Professional Name Role Phone Ean POTTERUrbano Primary Care Physician [phone] Encounter [facility] Date(s): 06/02/23 - 07/02/23 [facility] [address] [place], [place] [address] Attending Physician: Hilton Silva Admitting Physician: Hilton Silva Referring Physician: AdmtrHilton Allergies, Adverse Reactions, Alerts No Known Allergies [...] (oldterm) 15 92 G iven 1Result Comment: [facility] [id number] 2Admin Note: MMR 3Admin Note: MMR 4Admin [...] Reference Physician Member Role: PCP Address: Address: [address] [place] [address] Dr mueller [facility] [place] [address]- Care Team Related Persons Name: KIYA SUTHERLAND Address: home [address] [place] [address] [address] [place], [place] Name: ERICKA GUTIERREZ Address: Address: home [address] [place] Name: SUSAN GUTIERREZ Address: Address: home [address] Name: JOSS JOHASNEN Address: [address] [place] [address] Name: JOHN BARROW Address: [address] [place] [address]
--- OUTSIDE RECORDS SUMMARY | 2024-02-17 18:22 | XMS_ITS | Continuity of Care Document ---
Author Organization [facility] Address [address] [place] [address]- Care Team Providers Care Trimming Operator Name Role Phone Urbano Mckoy DO Primary Care Physician [phone] [facility]): [facility]16[facility]22 - 12/23/22 [facility] [address] [place] [id number] Attending Physician: Not on Staff, Attending [...] (oldterm) 15 92 G iven 1Result Comment: [facility] [id number] 2Admin Note: MMR 3Admin Note: MMR 4Admin [...] Confirmed Active Obese class I Confirmed Active Vital Signs Most recent to oldest [Reference Range]: 1 Height 155 cm (12/16/22 2:33 PM) Weight 73 kg (12/16/22 2:33 PM) Body Mass Index [18.5-24.99 kg/m2] 30.39 kg/m2 *>HHI* (12/16/22 2:33 PM) Blood Pressure [90-138/55-84 mm Hg] 106/ 64mm Hg (12/16/22 2:33 PM) Blood pressure sites Arm, right (12/16/22 2:33 PM) Weight Obtained Via Standing scale (12/16/22 2:33 PM) Social History Social History Type Response Smoking Status Former smoker, quit more than 30 days ago; Type: Cigarettes; Other: Smoked on/off for about five years. About 1-2 cigarettes. Quit around 2017; entered on: 11/22/18 Sex Note * Rupinder Sinclair MA: PERFORM, SIGN, VERIFY Event Display: Patient Education/Instruction Authored Date: [id number] [facility] *[facility] Clinical Summary Name TERA JOHANSEN Age 32 Years 1990 PCP Urbano Mckoy DO PCP Visit Date 12/16/2022 14:26:00 Additional Instructions: Scheduled Appointments?? Future Appointments ?*[facility] ?Phone:??--?Fax:??-- ?Appt. Date:??12/17/2022?9:30 AM ?Scheduled Provider:??Dinorah Ballard [employer] Nurse ?*[facility] ?Phone:??--?Fax:??-- ?Appt. Date:??03/14/2023?9:30 AM ?Scheduled Provider:??Dinorah Ballard [employer] Nurse Follow-Up Instructions ?? Diagnosis Encounter for initial prescription of injectable contraceptive; Family history of malignant neoplasm of ovary; Encounter for gynecological examination (general) (routine) without abnormal findings; Family history of malignant neoplasm of digestive organs Medications: Please continue your medications until treatment is completed or stopped by your provider. Discuss any questions related to medications with your provider. Medications to Continue with No Changes [id number], [address], [place] [id number], [phone] MedroxyPROGESTERone (Depo-Provera Contraceptive 150 mg/mL intramuscular suspension) 1 Milliliter Intramuscular Every 3 months. Refills: 3. Next Dose: No Longer Take the Following Medications Levonorgestrel (Plan B One-Step 1.5 mg oral tablet) 1 tab(s) Oral once. use within 72 hours. Refills: 1. Allergy Info:?? NKA Medications Given This Visit Future Orders ?No future orders Vital Signs Height 155 cm Weight 73 kg BMI 30.39 kg/m2 Blood Pressure 106 mm Hg/64 mm Hg Temperature Pulse Rate Respiratory Rate 02 Sat Mode of Delivery / You can now view a summary of your hospital visit from the comfort of your home through a free online portal called [employer]. [employer] is a website that allows you to securely view your medical information including discharge summary, medications and follow-up visits. ??You can alsosend a secure electronic message to your doctor???s office to request appointments, renew medications or just ask a question. You can enroll at [email or web address] or register during your next office visit. Disclaimer:?? The information provided is of a general nature and is intended to be used in conjunction with the recommendations and advice of your health care practitioner. ??Every effort has been made to ensure that the information provided is accurate and complete at the time it is provided to you however, as your needs change, or, as new ??information becomes available, different or additional instructions may be required. If you have questions, please consult with your primary care provider or pharmacist, as appropriate. ??This information is not intended to serve as substitution for assessment and evaluation by a qualified health care provider. If you do not have a primary care provider, you may find a [facility] provider by calling [facility] at [phone]. For information about the plan of care including goals and instructions for your diagnosis, please see the patient education orders section of this document. Patient Education Materials?? The content of this educational material or handout may have been modified, supplemented, or adapted from its original content and format to support your individualized medical care. Patient Care team information Care Team Personnel Name: Urbano Mckoy DO Position: Reference Physician Member Role: PCP Address: Address: [address] [place] [address]- Care Team Related Persons Name: KIYA SUTHERLAND Address: home [address] [address] Name: ERICKA GUTIERREZ Address: [address] Address: home [address] [address] Name: SUSAN GUTIERREZ Address: [address] Address: home [address] [address] [place] Name: JOSS JOHANSEN Address: [address] [place] [address] Name: JOHN BARROW Address: home [address] [place] [address]
--- OUTSIDE RECORDS SUMMARY | 2024-02-17 18:22 | XMS_ITS | Continuity of Care Document ---
Author Organization [facility] Address [address] [place] [address]- Care Team Providers Care Construction Management Assistant Name Role Phone Ean POTTERUrbano Primary Care Physician [facility] 03[facility]04[facility]23 - 07/02/23 [facility] [address] [place], [place] [address] Attending Physician: Not on Staff, Attending MD Referring Physician: Ari TERRY, Mary Sahu Head Allergies, Adverse Reactions, Alerts No Known Allergies [...] (oldterm) 15 92 G iven 1Result Comment: [facility] [id number] 2Admin Note: MMR 3Admin Note: MMR 4Admin [...] Reference Physician Member Role: PCP Address: Address: [address] [place] [address] [place] [address]- Care Team Related Persons Name: KIYA SUTHERLAND Address: home [address] [place], [place] [address], [place] [address] Name: ERICKA GUTIERREZ Address: Address: home [address] [place] Name: SUSAN GUTIERREZ Address: Address: home [address] [place] Name: JOSS JOHANSEN Address: [address] [place] [address] Name: JOHN BARROW Address: home [address] [place] [address]
--- OUTSIDE RECORDS SUMMARY | 2024-02-17 18:22 | XMS_ITS | Continuity of Care Document ---
Author Organization [facility] Address [address] [place] [address]- Care Team Providers Care Tearoom Host/Hostess Name Role Phone MckoyGage kapadia DOestefany Mcdonald Primary Care Physician [phone] [facility] 09[facility]27[facility]22 [facility] [address] [place] [address] Allergies, Adverse Reactions, Alerts No Known Allergies [...] B Conj Vaccine (oldterm) 15 92 G simon 1Result Comment: [facility] [id number] 2Admin Note: MMR 3Admin Note: MMR 4Admin [...] 1 mL, 3 Refills, Maintenance, 08/20/21 10:46:00 EST, Suspension, [id number], Partial fill upon patient request if the prescription is for a schedule II opioid drug., 155, cm, 08/20/21 10:04:00 ES... Start Date: 08/20/21 Status: Ordered Plan B One-Step 1.5 mg oral tablet 1.5 mg, 1, tablet, By Mouth, Once, use within 72 hours, # 1 tablet, Refills 1, Tot. Refills 1, SoftStop, 08/17/21 17:32:00 EST, Route to Pharmacy Electronically, [facility]/pharmacy [facility][id number], Partial fill upon patient request if the prescription is for a sched... 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 About 1-2 cigarettes. Quit around 2016; entered on: 11/22/18 Sex Patient Care team information Care Team Personnel Name: Urbano Mckoy DO Position: Reference Physician Member Role: PCP Address: Address: [address] [place] [address] [place] [address]- Care Team Related Persons Name: KIYA SUTHERLAND Address: home [address] [facility] [address] [place], [place] Name: ERICKA GUTIERREZ Address: Address: home [address] [facility] [address] [place] Name: SUSAN GUTIERREZ Address: Address: home [address] [facility] [address] [place], [place] Name: JOSS JOHANSEN Address: [address] [place] [address] Name: JOHN BARROW Address: home [address] [place] [address]
[2024-02-17 18:24] VITALS: BP 136/77; PULSE 83; RESP 16; TEMP 36.3; O2SAT 98
== END 2024-02-17 18:26 | disposition home or self-care (01) ==
PROVIDERS: Emergency Provider Emergency Medicine
DX: H66.91 Otitis media, unspecified, right ear (principal); H60.91 Unspecified otitis externa, right ear
CPT/HCPCS: 99282